=== PATIENT | female | born 1960 | race Caucasian/White ===

== ENCOUNTER → 2018-10-05 17:54 | Outpatient (CLI) | payer OTHER, SELFPAY ==
[2018-10-05 19:32] LABS: Amphetamine/Metha Screen,Urine Negative ng/mL (<1000); Barbiturates Screen,Urine Negative ng/mL (<200); Benzodiazepines Screen,Urine Negative ng/mL (<200); Cannabinoid Screen,Urine Positive ng/mL (<50); Cocaine Screen,Urine Negative ng/mL (<300); Methadone Screen,Urine Negative ng/mL (<300); Opiate Screen,Urine Negative ng/mL (<300); Phencyclidine Screen,Urine Negative ng/mL (<25)
== END ==
PROVIDERS: Visit Provider Emergency Medicine
DX: J44.9 Chronic obstructive pulmonary disease, unspecified (principal); Z79.899 Other long term (current) drug therapy
CPT/HCPCS: 80305

== ENCOUNTER → 2018-12-03 13:22 | Outpatient (CLI) | payer OTHER, SELFPAY ==
[2018-12-03 13:35] LABS: Basophils % 0.4 % (0.1-2.0); Eosinophils # 0.1 K/mm3 (0.0-0.4); Eosinophils % 1.9 % (0.1-12.0); Hematocrit 41.9 % (37.0-47.0); Lymphocytes # 1.7 K/mm3 (0.7-4.5); Lymphocytes % 25.4 % (10-50); Mean Corpuscular HGB Conc 33.4 g/dL (31.8-35.4); Mean Corpuscular Hemoglobin 30.6 pg (27.0-31.2); Mean Corpuscular Volume 91.6 fl (81-99); Mean Platelet Volume 7.3 fl (7.4-10.4); Monocytes # 0.3 K/mm3 (0.1-1.0); Monocytes % 3.8 % (1.7-9.3); Neutrophils # 4.7 K/mm3 (1.8-7.8); Neutrophils % 68.5 % (37.0-80.0); Platelet Count 247 K/mm3 (142-424); Red Blood Count 4.57 M/mm3 (4.20-5.40); Red Cell Distribution Width 15.1 % (11.5-17.5); White Blood Count 6.8 K/mm3 (4.8-10.8)
[2018-12-03 14:39] LABS: Alanine Aminotransferase 23 U/L (12-78); Albumin Level 3.5 gm/dL (3.4-5.0); Albumin/Globulin Ratio 1.2 (1.1-1.8); Alkaline Phosphatase 87 U/L (46-116); Anion Gap 13.7 mEq/L (5-15); Aspartate Amino Transferase 8 U/L (15-37); Bilirubin,Total 0.3 mg/dL (0.2-1.0); Blood Urea Nitrogen 12 mg/dL (7-18); Calcium 8.7 mg/dL (8.5-10.1); Carbon Dioxide 27 mmol/L (21.0-32.0); Chloride 104 mmol/L (98-107); Chol/HDL Ratio 4.4 (1-3.5); Cholesterol 157 mg/dL (140-200); Creatinine,Serum 1.66 mg/dL (0.55-1.02); Estimated Glomerular Filt Rate 32 ml/min (>60); GFR (African American) 39 ML/MIN (>60); Glucose 128 mg/dL (74-106); HDL Cholesterol 36 mg/dL (29-89); LDL Cholesterol 87 mg/dL (0-130); Potassium 3.7 mmoL/L (3.5-5.1); Sodium 141 mmol/L (136-145); T4 (Thyroxine) 6.1 ug/dl (4.7-13.3); Total Protein,Serum 6.5 gm/dL (6.4-8.2); Triglycerides 172 mg/dL (30-200); VLDL Cholesterol 34 mg/dL (0-40)
== END ==
PROVIDERS: Visit Provider Emergency Medicine
DX: N28.9 Disorder of kidney and ureter, unspecified (principal)
CPT/HCPCS: 80053; 80061; 84436; 84443; 85025

== ENCOUNTER → 2019-01-14 17:22 | Outpatient (CLI) | payer OTHER, SELFPAY ==
[2019-01-14 19:24] LABS: Anion Gap 12.9 mEq/L (5-15); Blood Urea Nitrogen 16 mg/dL (7-18); Calcium 9.1 mg/dL (8.5-10.1); Carbon Dioxide 31 mmol/L (21.0-32.0); Chloride 104 mmol/L (98-107); Creatinine,Serum 1.69 mg/dL (0.55-1.02); Estimated Glomerular Filt Rate 31 ml/min (>60); GFR (African American) 38 ML/MIN (>60); Glucose 96 mg/dL (74-106); Potassium 3.9 mmoL/L (3.5-5.1); Sodium 144 mmol/L (136-145)
[2019-01-14 20:06] LABS: Hemoglobin A1C 5.8 % (0.0-7.0)
== END ==
LOC: LAB 17:25 → LAB.DROPOF 17:26
PROVIDERS: Visit Provider Nurse Practitioner Family
DX: G62.9 Polyneuropathy, unspecified (principal); L03.90 Cellulitis, unspecified; R31.9 Hematuria, unspecified; N28.9 Disorder of kidney and ureter, unspecified; N39.0 Urinary tract infection, site not specified
CPT/HCPCS: 80048; 83036; 87070; 87077; 87086; 87186; 87205

== ENCOUNTER → 2019-02-28 09:04 | Outpatient (POV) | payer OTHER, SELFPAY | PROVIDERS: Visit Provider Specialist | DX: R20.0 Anesthesia of skin (principal); R20.2 Paresthesia of skin | CPT/HCPCS: 95886; 95909 ==

== ENCOUNTER → 2019-04-22 08:51 | Outpatient (CLI) | payer OTHER, SELFPAY ==
--- NOTE | 2019-04-22 08:53 | MR_ITS ---
PROCEDURE: MR LUMBAR SPINE WO CON CLINICAL INDICATION: back pain Low back pain with intermittent right leg pain numbness and tingling COMPARISON: No exams were available for comparison TECHNIQUE: Standard multiplanar multiecho sequences are performed without contrast. 3-D MIP and myelographic images are also rendered and reviewed FINDINGS: There is normal alignment. The spinal cord ends at the L2 level. At L1 there is a 1.9 x 1.3 cm area of increased T1 and T2 signal with increased T1 and T2 signal involving L4 vertebral body in the mid and posterior aspect on the left consistent with incidental lipomata sore hemangiomatous involvement. L1-L2, L2-L3, L3-L4 have an unremarkable appearance. L4-5: There is mild facet and ligamentum hypertrophy with mild left lateral recess narrowing. L5-S1: Mild facet and ligamentum hypertrophy. IMPRESSION: 1. Mild facet and ligamentum hypertrophy at L4-L5 and L5-S1. 2. No disc herniation or other significant anomaly evident. 3. Incidental lipomatosis or hemangiomatous involvement at L1 and L4 Dictated by: Mati Caro MD 04/22/2019 18:33 Electronically signed by Mati Caro MD in [place] 04/23/2019 05:41
== END ==
PROVIDERS: PCP Emergency Medicine; Visit Provider Emergency Medicine
DX: M54.9 Dorsalgia, unspecified (principal)
CPT/HCPCS: 72148; 76376

== ENCOUNTER → 2019-12-08 09:53 | Outpatient (CLI) | payer OTHER, SELFPAY ==
--- NOTE | 2019-12-08 09:53 | MM_ITS ---
PROCEDURE: MM DIG SCREENING MAMM BI W/CAD Digital Breast Tomosynthesis Included CLINICAL INDICATION: screening there is a history of breast cancer patient's mother. COMPARISON: DIG MAMMO BILAT SCREENING from 08/31/2012 MAMMO SCREENING DIGITAL BILAT from 03/18/2016 Screening-Bilateral Mammography from 07/07/2017 , outside films TECHNIQUE: Standard CC and MLO images and 3D Tomosynthesis was obtained. R2 CAD reviewed. FINDINGS: Scattered fibroglandular densities are seen in the central portions of both breasts. There is a benign-appearing calcification just deep to the nipple right breast. There are few scattered benign-appearing microcalcifications inner quadrant each breast. There are stable tiny benign-appearing nodular densities outer quadrant left breast. There is no suspicious lesion and no suspicious microcalcifications. There are normal appearing nodes in each axilla. IMPRESSION: Fibrofatty parenchyma with no suspicious lesions seen BI-RAD Category: 2 Benign Finding(s) FOLLOW-UP: 1YR 1 Year Follow-up (A letter has been sent to the patient regarding results of the study.) Dictated by: Dr. Howard Myers MD 12/14/2019 11:[address] Howard Myers MD in [place] 12/14/2019 11:47
== END ==
PROVIDERS: PCP Emergency Medicine; Visit Provider Emergency Medicine
DX: Z12.31 Encounter for screening mammogram for malignant neoplasm of breast (principal)
CPT/HCPCS: 77063; 77067

== ENCOUNTER → 2019-12-13 17:57 | Outpatient (CLI) | payer OTHER, SELFPAY ==
[2019-12-13 18:32] LABS: Basophils # 0.1 K/mm3 (0-0.2); Basophils % 0.8 % (0.1-2.0); Eosinophils # 0.1 K/mm3 (0.0-0.4); Hematocrit 42.6 % (37.0-47.0); Hemoglobin 14.2 g/dL (12.2-16.2); Lymphocytes # 2.4 K/mm3 (0.7-4.5); Lymphocytes % 31.1 % (10-50); Mean Corpuscular HGB Conc 33.3 g/dL (31.8-35.4); Mean Corpuscular Hemoglobin 31.8 pg (27.0-31.2); Mean Corpuscular Volume 95.4 fl (81-99); Mean Platelet Volume 8.3 fl (7.4-10.4); Monocytes # 0.4 K/mm3 (0.1-1.0); Monocytes % 5.2 % (1.7-9.3); Neutrophils # 4.8 K/mm3 (1.8-7.8); Neutrophils % 61.9 % (37.0-80.0); Platelet Count 374 K/mm3 (142-424); Red Blood Count 4.46 M/mm3 (4.20-5.40); Red Cell Distribution Width 13.7 % (11.5-17.5); White Blood Count 7.8 K/mm3 (4.8-10.8)
[2019-12-13 18:42] LABS: Chloride 104 mmol/L (98-107); Sodium 140 mmol/L (136-145)
[2019-12-13 18:43] LABS: Potassium 3.9 mmoL/L (3.5-5.1)
[2019-12-13 18:45] LABS: Alanine Aminotransferase 27 U/L (12-78); Alkaline Phosphatase 94 U/L (38-126); Aspartate Amino Transferase 34 U/L (14-36); Bilirubin,Total 0.6 mg/dl (0.2-1.3); Blood Urea Nitrogen 14 mg/dl (7-17); Estimated Glomerular Filt Rate 86 ml/min (>60); GFR (African American) 104 ML/MIN (>60)
[2019-12-13 18:46] LABS: Albumin Level 4.6 g/dl (3.5-5.0); Albumin/Globulin Ratio 1.6 (1.1-1.8); Anion Gap 12.9 mEq/L (5-15); Calcium 9.5 mg/dl (8.4-10.2); Carbon Dioxide 27 mmol/L (22.0-30.0); Globulin 2.8 g/dL (1.3-3.2); Glucose 106 mg/dl (74-100); Total Protein,Serum 7.4 g/dl (6.3-8.2)
[2019-12-13 19:01] LABS: Free T4 (Free Thyroxine) 1.28 ng/dl (0.78-2.19)
[2019-12-13 19:43] LABS: Thyroid Stimulating Hormone 1.12 uIU/mL (0.465-4.68)
== END ==
PROVIDERS: Visit Provider Emergency Medicine
DX: R60.9 Edema, unspecified (principal); I10 Essential (primary) hypertension
CPT/HCPCS: 80053; 84439; 84443; 85025

== ENCOUNTER → 2020-03-22 13:25 | Outpatient (CLI) | payer OTHER, SELFPAY ==
--- NOTE | 2020-03-22 13:31 | XR_ITS ---
PROCEDURE: XR FOOT WT BEARING LT 3V CLINICAL INDICATION: pain COMPARISON: No exams were available for comparison FINDINGS: Bones: No fracture or dislocation. No lytic or blastic change. There is normal mineralization. Joints: The joint spaces are well-preserved. No significant degenerative/arthritic changes. No erosive changes evident. Other findings:None. IMPRESSION: No acute findings. Dictated by: Mati Caro MD 03/22/2020 14:26 Mati Caro MD in [place] 03/22/2020 14:26
--- NOTE | 2020-03-22 13:31 | XR_ITS ---
PROCEDURE: XR FOOT WT BEARING RT 3V CLINICAL INDICATION: pain COMPARISON: No exams were available for comparison FINDINGS: Bones: No fracture or dislocation. No lytic or blastic change. There is normal mineralization. Joints: There are mild osteoarthritic changes at the 1st metacarpal-carpal joint and at the navicular cuneiform joint. Mild bony hypertrophy is present at the distal aspect of the 1st metatarsal. Other findings:None. IMPRESSION: Mild degenerative changes Dictated by: Mati Caro MD 03/22/2020 14:28 Mati Caro MD in [place] 03/22/2020 14:28
== END ==
PROVIDERS: PCP Emergency Medicine; Visit Provider Podiatrist
DX: M79.673 Pain in unspecified foot (principal)
CPT/HCPCS: 73630

== ENCOUNTER → 2020-07-02 13:33 | Outpatient (CLI) | payer OTHER, SELFPAY ==
--- NOTE | 2020-07-02 13:33 | CA_ITS ---
APPROVED REPORT EXAM: Comprehensive 2D, Doppler, and color-flow Echocardiogram Community Relations Assistant: Tessie Gamino RT(R) Ht: 5 ft 3 in Wt: 274lbs BSA: 2.21 BP: 128/82 mmHg Indications: murmur, COPD, smoker, SOB, HTN, GERD, obesity 2D Dimensions LVOT 2.01 cm (M/F) 1.5-2.5 M-Mode Dimensions RVDd 2.99 cm (0.9-2.6) LA Diam 3.66 cm (1.9-4.0) LVDd 3.82 cm (3.5-5.7) Ao Diam 2.68 cm (2.0-3.7) LVDs 2.63 cm (3.5-5.7) IVSd 1.24 cm (0.6-1.1) PWd 0.93 cm (0.6-1.1) EF (Teich) 59.60% FS 31.20% EDV (Teich) 62.70 mL ESV (Teich) 25.30 mL LV Diastology E Decel Time 233.00 (160-240 msec) E/A Ratio 1.0 MED E' 7.40 (< 7 cm/sec) E'/MED E' Ratio 13.82 (>14) LAT E' 7.70 (<10 cm/sec) E/LAT E' Ratio 13.29 (>14) Mitral Valve MV E Max Yogi. 102.00 (40-130 cm/s) MV A Velocity 99.00 (40-130 cm/s) E/A Ratio 1.03 MV Decel. Time 233.00 (160-240 ms) MV PHT 68.00 ms Left Ventricle Technically difficult study because of the patient factors and poor acoustic windows, left atrium is mildly enlarged, left ventricle is normal size, mild concentric left ventricular hypertrophy, visually estimated ejection fraction 55% with no regional wall motion abnormality, grade 1 diastolic dysfunction seen with tissue Doppler evidence of raise left atrial pressure. Right Ventricle Right atrium and right ventricle are mildly enlarged with normal contractility. Aortic Valve Aortic valve is minimally thickened and fibrosed. There is no aortic stenosis or aortic insufficiency. Mitral Valve Mitral valve leaflets are minimally thickened, there is no mitral stenosis, there is mild mitral regurgitation. Tricuspid Valve Tricuspid valve is grossly normal, there is mild tricuspid regurgitation, tricuspid regurgitation jet velocity is inadequate for calculation of the right ventricular systolic pressure. Pulmonic Valve Pulmonic valve is poorly visualized. Great Vessels Aortic root is normal size. Pericardium No significant pericardial effusion noted. Conclusion 1. Mild biatrial enlargement, normal left ventricular size, mild concentric left ventricular hypertrophy, visually estimated ejection fraction 55% with no regional wall motion abnormality, grade 1 diastolic dysfunction seen with tissue Doppler evidence of raise left atrial pressure. 2. Mildly enlarged right ventricle with normal contractility. 3. Mild mitral and tricuspid regurgitation. 4. No significant pericardial effusion noted. Electronically signed by : Shadi Jain, 07/03/2020 06:14:22
== END ==
PROVIDERS: PCP Emergency Medicine; Visit Provider Emergency Medicine
DX: R01.1 Cardiac murmur, unspecified (principal)
CPT/HCPCS: 93306

== ENCOUNTER 2020-09-05 14:20 | Inpatient (IN) | payer OTHER, SELFPAY ==
[2020-09-05] VITALS (15 sets, daily range): BP systolic 121–145; BP diastolic 59–76; PULSE 79–97; RESP 18–24; TEMP 36.4–37.1; O2SAT 73–100; BMI 50.1
--- NOTE | 2020-09-05 14:31 | ECG_ITS ---
APPROVED REPORT Exam: Resting ECG HR:85 bpm ECG Measurements Heart Rate 85 AXES MI 128 P 72 QRSd 86 QRS 111 QT 360 T 75 QTc 428 Conclusion Sinus rhythm with premature atrial complexes Indeterminate axis Cannot rule out Anterior infarct, age undetermined Abnormal ECG Electronically signed by : Armand Montgomery, 09/06/2020 08:53:00
--- NOTE | 2020-09-05 14:35 | XR_ITS ---
PROCEDURE: XR CHEST PORTABLE CLINICAL HISTORY: SOB Shortness of breath COMPARISON: No exams were available for comparison FINDINGS: Cardiomegaly with mild pulmonary venous congestion. There is overall increased density of the right hemithorax compared to the left which is felt to be mostly technical in nature. Cannot exclude pneumonia on the right. Upright PA and lateral chest or CT scan may provide further evaluation. No acute bony abnormalities. IMPRESSION: Mild CHF. Overall increased density of the right chest compared to the left felt to be mostly technical in nature. Cannot exclude underlying pneumonia in the right lower lobe Dictated by: Mati Caro MD 09/05/2020 15:46 Mati Caro MD in [place] 09/05/2020 15:46
--- NOTE | 2020-09-05 14:36 | HMH.EDGENADL ---
ED Disposition Clinical Impression: Acute exacerbation of chronic obstructive airways disease Community acquired pneumonia Qualifiers: Laterality: unspecified laterality Qualified Code(s): J18.9 - Pneumonia, unspecified organism Congestive heart failure Qualifiers: Heart failure type: unspecified Heart failure chronicity: acute on chronic Qualified Code(s): I50.9 - Heart failure, unspecified Disposition: Admitted As Inpatient Condition on Discharge: Good Referrals: Sheng Krueger MD [Primary Care Provider] - Time of Disposition: 17:24 - Critical Care Critical Care Time: No Attestation: On 09/05/20, the high probability of a clinically significant, sudden or life threatening deterioration of the following system(s) required my full and direct attention, intervention and personal management. The time I documented below is in addition to time spent performing reported procedures but includes the following listed in this critical care notation. Medical Decision Making - Medical Records Medical records reviewed: Yes: I reviewed the patient's medical records. - Jason Inquiry Pt receiving controlled substance: No Vital Signs: 09/05/20 14:21 09/05/20 14:25 09/05/20 15:20 Temperature 98.3 F Temperature Source Oral Pulse Rate Pulse Rate [Left Brachial] 89 79 Respiratory Rate 24 20 20 Blood Pressure [Right Arm] 145/76 H 127/71 Blood Pressure Mean [Right Arm] 99 89 Blood Pressure Source [Right Arm] Automatic Cuff Blood Pressure Position [Right Arm] Sitting 02 Sat by Pulse Oximetry 73 L 92 L 95 Oxygen Delivery Method Room Air Nasal Cannula Nasal Cannula Oxygen Flow Rate (LPM) 6 2 09/05/20 15:30 09/05/20 16:00 09/05/20 16:23 Temperature Temperature Source Pulse Rate 86 Pulse Rate [Left Brachial] 82 80 Respiratory Rate 18 20 Blood Pressure [Right Arm] 127/71 122/59 L Blood Pressure Mean [Right Arm] 89 80 Blood Pressure Source [Right Arm] Blood Pressure Position [Right Arm] 02 Sat by Pulse Oximetry 95 93 L Oxygen Delivery Method Nasal Cannula Room Air Nasal Cannula Oxygen Flow Rate (LPM) 4 4 09/05/20 16:30 09/05/20 17:11 Temperature Temperature Source Pulse Rate Pulse Rate [Left Brachial] 82 80 Respiratory Rate 20 24 Blood Pressure [Right Arm] 121/63 125/62 Blood Pressure Mean [Right Arm] 82 83 Blood Pressure Source [Right Arm] Blood Pressure Position [Right Arm] 02 Sat by Pulse Oximetry 99 88 L Oxygen Delivery Method Nasal Cannula Nasal Cannula Oxygen Flow Rate (LPM) 4 3 - Lab Data Lab results reviewed: Yes: I reviewed the patient's lab results. Lab Results 09/05/20 14:30: WBC 9.2, RBC 4.38, Hgb 13.1, Hct 43.8, MCV 99.9 H, MCH 29.9, MCHC 29.9 L, RDW 16.2, Plt Count 271, MPV 7.4, Neut % (Auto) 76.3, Lymph % (Auto) 16.6, [place] % (Auto) 4.8, Eos % (Auto) 1.7, Baso % (Auto) 0.6, Neut # (Auto) 7.0, Lymph # (Auto) 1.5, [place] # (Auto) 0.4, Eos # (Auto) 0.2, Baso # (Auto) 0.1 09/05/20 14:30: Sodium 142, Potassium 4.1, Chloride 97 L, Carbon Dioxide 42 H*, Anion Gap 7.1, BUN 31 H, Creatinine 1.40 H, Estimated Creat Clear 36, Estimated GFR 38 L, Est GFR ( Amer) 47 L, Glucose 97, Calcium 9.1, Total Bilirubin 0.4, AST 26, ALT 30, Alkaline Phosphatase 81, Troponin I 0.02, Total Protein 6.6, Albumin 3.8, Globulin 2.8, Albumin/Globulin Ratio 1.4 09/05/20 14:30: NT-Pro-B Natriuret Pep 5150 H 09/05/20 16:30: Urine Color Yellow, Urine Appearance Clear, Urine pH 6.0, Ur Specific [place] 1.020, Urine Protein Negative, Urine Glucose (UA) Negative, Urine Ketones Negative, Urine Blood Negative, Urine Nitrate Negative, Urine Bilirubin Negative, Urine Urobilinogen 0.2, Ur Leukocyte Esterase Negative Result diagrams: 09/05/20 14:30 09/05/20 14:30 Orders (Tests/Meds): ED MEDICATIONS Generic Name Dose Route Start Last Admin Trade Name Freq PRN Reason Stop Dose Admin Azithromycin 500 mg/ Sodium 250 mls @ 250 mls/hr 09/05/20 17:30 Chloride IV 09/19/20 17
[2020-09-05 14:57] LABS: Basophils # 0.1 K/mm3 (0-0.2); Basophils % 0.6 % (0.1-2.0); Eosinophils # 0.2 K/mm3 (0.0-0.4); Eosinophils % 1.7 % (0.1-12.0); Hematocrit 43.8 % (37.0-47.0); Hemoglobin 13.1 g/dL (12.2-16.2); Lymphocytes # 1.5 K/mm3 (0.7-4.5); Lymphocytes % 16.6 % (10-50); Mean Corpuscular HGB Conc 29.9 g/dL (31.8-35.4); Mean Corpuscular Hemoglobin 29.9 pg (27.0-31.2); Mean Corpuscular Volume 99.9 fl (81-99); Mean Platelet Volume 7.4 fl (7.4-10.4); Monocytes # 0.4 K/mm3 (0.1-1.0); Monocytes % 4.8 % (1.7-9.3); Neutrophils % 76.3 % (37.0-80.0); Platelet Count 271 K/mm3 (142-424); Red Blood Count 4.38 M/mm3 (4.20-5.40); Red Cell Distribution Width 16.2 % (11.5-17.5); White Blood Count 9.2 K/mm3 (4.8-10.8)
[2020-09-05 15:04] LABS: Chloride 97 mmol/L (98-107); Potassium 4.1 mmoL/L (3.5-5.1); Sodium 142 mmol/L (136-145)
[2020-09-05 15:06] LABS: Blood Urea Nitrogen 31 mg/dl (7-17); Creatinine Clearance Estimated 36 mL/min (50-200); Estimated Glomerular Filt Rate 38 ml/min (>60); GFR (African American) 47 ML/MIN (>60)
[2020-09-05 15:07] LABS: Alanine Aminotransferase 30 U/L (12-78); Albumin Level 3.8 g/dl (3.5-5.0); Albumin/Globulin Ratio 1.4 (1.1-1.8); Alkaline Phosphatase 81 U/L (38-126); Aspartate Amino Transferase 26 U/L (14-36); Bilirubin,Total 0.4 mg/dl (0.2-1.3); Calcium 9.1 mg/dl (8.4-10.2); Globulin 2.8 g/dL (1.3-3.2); Glucose 97 mg/dl (74-100); Total Protein,Serum 6.6 g/dl (6.3-8.2)
[2020-09-05 15:17] LABS: Anion Gap 7.1 mEq/L (5-15)
[2020-09-05 15:18] LABS: Carbon Dioxide 42 mmol/L (22.0-30.0)
[2020-09-05 15:19] LABS: Troponin I 0.02 ng/ml (0.00-0.034)
[2020-09-05 16:06] LABS: NT Pro Brain Natriuretic Pep. 5150 pg/mL (0-125)
[2020-09-05 16:37] LABS: Microscopic, Urine URINE MICROSCOPIC (MICROSCOPIC)
[2020-09-05 17:14] LABS: Appearance,Urine CLEAR (Clear); Bilirubin,Urine Negative (Negative); Blood, Urine Negative (Negative); Color,Urine YELLOW (Yellow); Glucose,Urine (UA) Negative (Negative); Ketones,Urine Negative (Negative); Leukocyte Esterase,Urine Negative (Negative); Nitrate,Urine Negative (Negative); Protein,Urine Negative (Negative); Urobilinogen,Urine 0.2 EU/dl (0.2)
[2020-09-05 17:54] LABS: Troponin I 0.02 ng/ml (0.00-0.034)
[2020-09-05 18:03] LABS: WBC,Urine Occasional #/hpf (0-3)
[2020-09-05 18:04] LABS: Bacteria,Urine Trace /lpf; Squamous Epithelial Cell,Urine Occasional #/hpf (0-5)
--- NOTE | 2020-09-05 19:14 | PC.NURSE ---
patient up to floor via stretcher.
--- NOTE | 2020-09-05 20:36 | HMH.HP ---
*Admission Date: 09/05/20 *Chief complaint: sob *History of present illness: this pr was seen in pcp office and asked to go to ed -pt with sob and lower ext swelling - no chest pain and was noted to be increased sob- she was seen in the ed -tient c/o increasing shortness of air and generalized body swelling worsening x 1 week, sent to ED from PCP office for low spo2. 60yo F presents to the emergency department from Dr. Krueger's office with concern for shortness of breath and worsening lower extremity edema. Patient reports the symptoms been progressively worsening over the past several days to weeks. She denies fever. She denies nausea/vomiting/diarrhea. Patient reports taking all home medications as directed. Patient continues to smoke, but states she is trying to decrease her tobacco use. She denies chest pain. pt with chf and was admitted for eval and treatment [facility] History I have reviewed the patient's past medical history: Yes Medical History: Reports:: Anxiety, Chronic Obstructive Pulmonary Disease (COPD), Depression, Gastroesophageal Reflux Disease(GERD), Hypertension, Lung Disease, Renal Insufficiency *Have you ever received a pneumonia vaccine?: No *Have you received a flu vaccine this season?: Yes Other Medical History: Reports: Fibromyalgia, Other Other Surgeries: Yes: Appendectomy, Cholecystectomy, Hernia Repair, Other Amputation: No Fractures: Yes - *Social History Smoking Status: Current every day smoker Tobacco Type: cigarettes # Packs/Day (cigarettes): 1 #Yrs smoked (if former smoker): 30 Alcohol Intake: never Substance Use Type: marijuana *Occupational Status:: disabled Housing: apartment Household Members: none *Travel in the last 8 weeks: None - Psychiatric History Pschychiatric History:: Reports:: Anxiety, Depression Family Hx:: Kidney Disease, Cancer, Hypertension, Thyroid Disorder, Diabetes Review of Systems - Review of Systems Review of systems:: pertinent systems reviewed and negative unless documented below - Constitutional Denies fever(s), Denies headache(s) - Eyes Denies change in vision - ENT Reports dizziness, Denies sore throat - *Cardiovascular Reports shortness of breath, Denies chest pain at rest - *Respiratory Reports shortness of breath - *Gastrointestinal Denies abdominal pain - *Genitourinary Denies blood in urine - *Musculoskeletal Denies joint pain - Integumentary/Breasts Denies rash - *Neurologic Denies seizure-like activity, Denies localized weakness, Denies headache(s) - Psychiatric Reports anxiety Meds Home Medications Medication Instructions Recorded Confirmed Type buspirone 15 mg tablet 15 mg PO TID tab 10/05/18 09/05/20 History risperidone 1 mg tablet 1 mg PO QHS 01/14/19 09/05/20 History cyclobenzaprine 10 mg tablet 10 mg PO HS PRN #20 tab 10/21/19 09/05/20 Rx albuterol sulfate 90 mcg/actuation 1 puff INHALATION Q6H PRN #18 g 12/07/19 09/05/20 Rx aerosol inhaler hydroxyzine HCl 50 mg tablet 50 mg PO NEEDED PRN tab 02/21/20 09/05/20 History ciclopirox 8 % topical solution 1 applic TOPICAL DAILY 60 Days 03/22/20 09/05/20 Rx #6.6 ml diclofenac sodium 1 % topical gel 4 g TOPICAL QID PRN #30 g 03/22/20 09/05/20 Rx escitalopram oxalate 20 mg tablet 20 mg PO DAILY tab 03/22/20 09/05/20 History fluticasone propionate 50 1 spray INTRANASAL DAILY PRN 03/22/20 09/05/20 History mcg/actuation nasal spray,suspension ipratropium 0.5 mg-albuterol 3 mg 3 ml INHALATION Q8H PRN #180 ml 06/01/20 09/05/20 Rx (2.5 mg base)/3 mL nebulization soln gabapentin 800 mg tablet 800 mg PO TID #90 tab 06/22/20 09/05/20 Rx hydrocodone 5 mg-acetaminophen 325 1 tab PO DAILY PRN #8 tab 08/28/20 09/05/20 Rx mg tablet Fluticasone/Vilanterol [Breo See Rx Instructions .ROUTE .COMPLEX 09/05/20 09/05/20 History Ellipta 200-25 Mcg INH] Furosemide [Furosemide 20mg Tab*] See Rx Instructions .ROUTE .COMPLEX 09/05/20 09/05/20 History Nystatin [Nystatin Cr
[2020-09-05 20:38] LABS: Troponin I 0.02 ng/ml (0.00-0.034)
[2020-09-06] VITALS (14 sets, daily range): BP systolic 114–142; BP diastolic 64–72; PULSE 87–106; RESP 19–20; TEMP 36.6–37.5; O2SAT 89–93; BMI 49.8
[2020-09-06 07:35] LABS: Chloride 96 mmol/L (98-107); Potassium 4.5 mmoL/L (3.5-5.1); Sodium 143 mmol/L (136-145)
[2020-09-06 07:37] LABS: Basophils % 0.1 % (0.1-2.0); Eosinophils % 0.3 % (0.1-12.0); Hematocrit 42.5 % (37.0-47.0); Hemoglobin 12.6 g/dL (12.2-16.2); Lymphocytes # 0.7 K/mm3 (0.7-4.5); Lymphocytes % 9.8 % (10-50); Mean Corpuscular HGB Conc 29.6 g/dL (31.8-35.4); Mean Corpuscular Hemoglobin 30.5 pg (27.0-31.2); Mean Corpuscular Volume 103.3 fl (81-99); Mean Platelet Volume 7.9 fl (7.4-10.4); Monocytes # 0.2 K/mm3 (0.1-1.0); Monocytes % 3.3 % (1.7-9.3); Neutrophils # 6.2 K/mm3 (1.8-7.8); Neutrophils % 86.6 % (37.0-80.0); Platelet Count 241 K/mm3 (142-424); Red Blood Count 4.12 M/mm3 (4.20-5.40); Red Cell Distribution Width 15.7 % (11.5-17.5); White Blood Count 7.2 K/mm3 (4.8-10.8)
[2020-09-06 07:38] LABS: Blood Urea Nitrogen 29 mg/dl (7-17); Calcium 8.8 mg/dl (8.4-10.2); Creatinine Clearance Estimated 30 mL/min (50-200); Estimated Glomerular Filt Rate 33 ml/min (>60); GFR (African American) 40 ML/MIN (>60); Glucose 137 mg/dl (74-100)
[2020-09-06 07:42] LABS: MANUAL DIFFERENTIAL MANUAL DIFFERENTIAL (MANUAL DIFF)
[2020-09-06 07:51] LABS: Anion Gap 8.5 mEq/L (5-15)
--- NOTE | 2020-09-06 08:00 | CA_ITS ---
APPROVED REPORT EXAM: Comprehensive 2D, Doppler, and color-flow Echocardiogram [employer] Polisher Helper: Larissa Craven RDCS Ht: 5 ft 3 in Wt: 283lbs BSA: 2.24 BP: 141/69 mmHg Indications: CHF,COPD,SOA,LUI,OBESITY M-Mode Dimensions RVDd 4.52 cm (0.9-2.6) LA Diam 3.41 cm (1.9-4.0) LVDd 4.63 cm (3.5-5.7) Ao Diam 2.65 cm (2.0-3.7) LVDs 3.47 cm (3.5-5.7) IVSd 0.91 cm (0.6-1.1) PWd 1.11 cm (0.6-1.1) EF (Teich) 49.60% FS 25.10% EDV (Teich) 98.80 mL TAPSE 0.03 (<1.7) ESV (Teich) 49.80 mL LV Diastology E Decel Time 253.00 (160-240 msec) E/A Ratio 0.9 MED E' 7.80 (< 7 cm/sec) E'/MED E' Ratio 12.28 (>14) Mitral Valve MV E Max Yogi. 96.00 (40-130 cm/s) MV A Velocity 109.00 (40-130 cm/s) E/A Ratio 0.88 MV Decel. Time 253.00 (160-240 ms) MV PHT 74.00 ms Tricuspid Valve TR P. Velocity 297.00 cm/s RAP Estimate 10.00 mmHg RVSP 45.20 mmHg Left Ventricle Left atrium is mildly enlarged, left ventricle is normal size, mild concentric left ventricular hypertrophy, visually estimated ejection fraction 55% with no regional wall motion abnormality, grade 1 diastolic dysfunction seen without tissue Doppler evidence of raise left atrial pressure. Right Ventricle Right atrium and right ventricle moderately enlarged with normal contractility. Aortic Valve Aortic valve is minimally thickened and fibrosed, there is no aortic stenosis or aortic insufficiency. Mitral Valve Mitral valve is grossly normal, there is trace mitral regurgitation. Tricuspid Valve Tricuspid valve grossly normal, there is trace tricuspid regurgitation, tricuspid regurgitation jet velocity is inadequate for calculation of the right ventricular systolic pressure. Pulmonic Valve Pulmonic valve is poorly visualized. Great Vessels Aortic root is normal size. Pericardium No significant pericardial effusion noted. Conclusion 1. Biatrial enlargement, normal left ventricular size, visually estimated ejection fraction 55% with no regional wall motion abnormality, grade 1 diastolic dysfunction seen without tissue Doppler evidence of raise left atrial pressure. 2. Moderately enlarged right ventricle with normal contractility. 3. Trace mitral and tricuspid regurgitation. 4. No significant pericardial effusion noted. Electronically signed by : Shadi Jain, 09/06/2020 14:11:38
--- NOTE | 2020-09-06 08:09 | HMH.PHAVTE ---
[facility] Pharmacy VTE Monitoring - Patient Demographics Admission date: 09/06/20 Report Date: 09/06/20 Time: 08:09 Allergies/Adverse Reactions: Patient Allergies amoxicillin [From Augmentin] Allergy (Severe, Verified 09/05/20 13:31) Rash ciprofloxacin Allergy (Severe, Verified 09/05/20 13:31) Rash clavulanic acid [From Augmentin] Allergy (Severe, Verified 09/05/20 13:31) Rash shellfish derived Allergy (Severe, Verified 09/05/20 20:25) Anaphylaxis Height: 1.6 m Weight: 127.488 kg Patient Problems: Current Active Problems Community acquired pneumonia (Acute) Congestive heart failure (Acute) Acute exacerbation of chronic obstructive airways disease (Acute) JI (acute kidney injury) (Acute) Acute respiratory failure with hypoxia (Acute) SIRS (systemic inflammatory response syndrome) (Acute) Peripheral neuropathy (Chronic) Lumbar facet joint pain (Acute) Obesity (Acute) Tobacco use (Acute) H/O kidney removal (Acute) Fibromyalgia (Acute) - VTE Risk Labs: VTE Related Lab Results Hgb 12.6 g/dL (12.2-16.2) 09/06/20 07:15 Hct 42.5 % (37.0-47.0) 09/06/20 07:15 Plt Count 241 K/mm3 (142-424) 09/06/20 07:15 BUN 29 mg/dl (7-17) H 09/06/20 07:15 Creatinine 1.60 mg/dl (0.52-1.04) H 09/06/20 07:15 Estimated Creat Clear 30 mL/min (50-200) 09/06/20 07:15 Was VTE Risk Assessment Performed: Yes VTE Score: 11 VTE Risk Level: Moderate Risk Clinical Trial Participant: No - Prophylaxis VTE Prophylaxis Ordered?: Yes Types of VTE Prophylaxis: TEDS Knee High
--- NOTE | 2020-09-06 09:06 | HMH.ACPN2 ---
Internal Medicine - PN: Subj *Date: 09/06/20 *Time: 09:06 Interval history: pt sitting up in bed states she feels bad. Exam Vital signs and Labs for Last 24 Hours: Temp Pulse Resp BP Pulse Ox 97.8 F 95 H 20 114/64 90 L 09/06/20 07:57 09/06/20 07:57 09/06/20 07:57 09/06/20 07:57 09/06/20 07:57 Laboratory Results - last 24 hr 09/05/20 14:30: WBC 9.2, RBC 4.38, Hgb 13.1, Hct 43.8, MCV 99.9 H, MCH 29.9, MCHC 29.9 L, RDW 16.2, Plt Count 271, MPV 7.4, Neut % (Auto) 76.3, Lymph % (Auto) 16.6, [place] % (Auto) 4.8, Eos % (Auto) 1.7, Baso % (Auto) 0.6, Neut # (Auto) 7.0, Lymph # (Auto) 1.5, [place] # (Auto) 0.4, Eos # (Auto) 0.2, Baso # (Auto) 0.1 09/05/20 14:30: Sodium 142, Potassium 4.1, Chloride 97 L, Carbon Dioxide 42 H*, Anion Gap 7.1, BUN 31 H, Creatinine 1.40 H, Estimated Creat Clear 36, Estimated GFR 38 L, Est GFR ( Amer) 47 L, Glucose 97, Calcium 9.1, Total Bilirubin 0.4, AST 26, ALT 30, Alkaline Phosphatase 81, Troponin I 0.02, Total Protein 6.6, Albumin 3.8, Globulin 2.8, Albumin/Globulin Ratio 1.4 09/05/20 14:30: NT-Pro-B Natriuret Pep 5150 H 09/05/20 16:30: Urine Color Yellow, Urine Appearance Clear, Urine pH 6.0, Ur Specific [place] 1.020, Urine Protein Negative, Urine Glucose (UA) Negative, Urine Ketones Negative, Urine Blood Negative, Urine Nitrate Negative, Urine Bilirubin Negative, Urine Urobilinogen 0.2, Ur Leukocyte Esterase Negative, Urine RBC None, Urine WBC Occasional, Ur Squamous Epith Cells Occasional, Urine Bacteria Trace 09/05/20 17:10: Troponin I 0.02 09/05/20 19:48: Troponin I 0.02 09/06/20 07:15: WBC 7.2, RBC 4.12 L, Hgb 12.6, Hct 42.5, MCV 103.3 H, MCH 30.5, MCHC 29.6 L, RDW 15.7, Plt Count 241, MPV 7.9, Neut % (Auto) 86.6 H, Lymph % (Auto) 9.8 L, [place] % (Auto) 3.3, Eos % (Auto) 0.3, Baso % (Auto) 0.1, Neut # (Auto) 6.2, Lymph # (Auto) 0.7, [place] # (Auto) 0.2, Eos # (Auto) 0.0, Baso # (Auto) 0.0 09/06/20 07:15: Sodium 143, Potassium 4.5, Chloride 96 L, Carbon Dioxide 43 H*, Anion Gap 8.5, BUN 29 H, Creatinine 1.60 H, Estimated Creat Clear 30, Estimated GFR 33 L, Est GFR ( Amer) 40 L, Glucose 137 H D, Calcium 8.8 I & O for Last 24 hours: Intake & Output 09/03/20 09/04/20 09/05/20 09/06/20 11:59 11:59 11:59 11:59 Intake Total 650 / 650 Output Total 500 / 500 Balance 150 / 150 Weight 281 lb 1 oz Microbiology Reports for the Last 24 Hours: Microbiology 09/05/20 14:30 Nasopharyngeal Coronavirus COVID-19 PCR - Final - Constitutional no acute distress, morbidly obese - *Routine HEENT Exam Head: Present: normocephalic Eye: Present: PERRL ENT: Present: mucous membranes moist - *Routine Neck Exam Present: supple. Absent: lymphadenopathy - *Routine Respiratory Exam Present: wheezes - *Routine Cardiovascular Exam Present: RRR - *Routine Abdominal Exam Present: soft, normoactive bowel sounds. Absent: tenderness - *Routine Extremities Exam Present: edema, normal capillary refill. Absent: cyanosis, clubbing - *Routine Skin Exam Present: warm. Absent: rash - *Routine Neurological Exam Present: alert, oriented X3 - Routine Psychiatric Exam Present: normal affect Assessment and Plan (1) Congestive heart failure Status: Acute Qualifiers: Heart failure type: unspecified Heart failure chronicity: acute on chronic Qualified Code(s): I50.9 - Heart failure, unspecified Category: Medical Code(s): I50.9 - Heart failure, unspecified (2) Acute exacerbation of chronic obstructive airways disease Status: Acute Category: Medical Code(s): J44.1 - Chronic obstructive pulmonary disease with (acute) exacerbation (3) Peripheral neuropathy Status: Chronic Qualifiers: Peripheral neuropathy type: idiopathic neuropathy, unspecified Qualified Code(s): G60.9 - Hereditary and idiopathic neuropathy, unspecified Category: Medical Code(s): G62.9 - Polyneuropathy, unspecified (4) Lumbar facet joint pain Status: Acute Categ
--- NOTE | 2020-09-06 09:23 | HMH.CNCARD ---
History of Present Illness Consult date: 09/06/20 Requesting physician: Sheng Krueger Consult reason: congestive heart failure, shortness of breath Chief complaint: SOA and edema History of present illness: This is a 60-year-old white female who presented to the emergency department with complaints of shortness of breath and bilateral lower extremity edema. The patient states that she has been having worsening shortness of breath and lower extremity edema for approximately a month but it has gotten really bad within the last week. She states that she is short of breath all of the time even at rest. This is worse with exertion and does improve with rest but does not completely resolve. She states that her bilateral lower extremities are so edematous that she can barely walk. She states that she is also noticed the edema in her abdomen as well. She denies any chest pain or pressure. She denies any fever, chills, nausea, vomiting or diarrhea. She does have associated orthopnea with her shortness of breath. The patient has ruled out for an [place]. [facility] History I have reviewed the patient's past medical history: Yes Medical History: Reports:: Anxiety, Congestive Heart Failure, Chronic Obstructive Pulmonary Disease (COPD), Depression, Gastroesophageal Reflux Disease(GERD), Hypertension, Lung Disease, Renal Insufficiency Denies:: Cancer, Diabetes Mellitus Type 1, Diabetes Mellitus Type 2, MRSA *Have you ever received a pneumonia vaccine?: No *Have you received a flu vaccine this season?: Yes Other Medical History: Reports: Arthritis, Fibromyalgia, Sinus Problems, Other Laterality Cases: Left: Total Knee Replacement Other Surgeries: Yes: Appendectomy, Cholecystectomy, Hernia Repair, Other Amputation: No Fractures: Yes - *Social History Last grade of school completed: 9th or 10th Smoking Status: Current every day smoker Tobacco Type: cigarettes # Packs/Day (cigarettes): 1 #Yrs smoked (if former smoker): 30 Alcohol Intake: never Substance Use Type: marijuana *Occupational Status:: unemployed Housing: apartment Household Members: none *Travel in the last 8 weeks: None - Psychiatric History Pschychiatric History:: Reports:: Anxiety, Depression Family Hx:: Asthma, Cancer, Coronary Artery Disease, Diabetes, Heart Attack, Hyperlipidemia, Hypertension Meds Home Medications Medication Instructions Recorded Confirmed Type buspirone 15 mg tablet 15 mg PO TID tab 10/05/18 09/05/20 History risperidone 1 mg tablet 1 mg PO HS 01/14/19 09/06/20 History hydroxyzine HCl 50 mg tablet 50 mg PO TIDP PRN tab 02/21/20 09/06/20 History ciclopirox 8 % topical solution 1 applic TOPICAL DAILY 60 Days 03/22/20 09/05/20 Rx #6.6 ml fluticasone propionate 50 1 spray INTRANASAL DAILY PRN 03/22/20 09/05/20 History mcg/actuation nasal spray,suspension ipratropium 0.5 mg-albuterol 3 mg 3 ml INHALATION Q8H PRN #180 ml 06/01/20 09/05/20 Rx (2.5 mg base)/3 mL nebulization soln Fluticasone/Vilanterol [Breo 1 inh PO DAILY 09/05/20 09/06/20 History Ellipta 200-25 Mcg INH] Furosemide [Furosemide 20mg Tab*] 20 mg PO DAILY 09/05/20 09/06/20 History Nystatin [Nystatin Cr 100,000 1 applic TOPICAL BID 09/05/20 09/05/20 History Units/GM 30GM] Pantoprazole Sodium 40 mg PO DAILY 09/05/20 09/06/20 History Albuterol Sulfate [Albuterol 1 puff IH Q6HP PRN 09/06/20 09/06/20 History Sulfate Hfa] Cyclobenzaprine HCl 10 mg PO HSP PRN 09/06/20 09/06/20 History [Cyclobenzaprine 10mg Tab*] Escitalopram Oxalate [Lexapro] 20 mg PO DAILY 09/06/20 09/06/20 History Gabapentin 800 mg PO TID 09/06/20 09/06/20 History Hydrocodone/Acetaminophen 1 each PO DAILYP PRN 09/06/20 09/06/20 History [Hydrocodone-Acetamin 5-325 mg] Metoprolol Succinate [Metoprolol 100 mg PO DAILY 09/06/20 09/06/20 History Succinate 100mg Tablet*] Allergies Allergy/AdvReac Type Severity Reaction Status Date / Time amoxicillin [From Augmentin] Allergy Severe Rash Verified 09/05/20 1
[2020-09-06 10:25] LABS: Lymphocytes % 9 % (10-50); Monocytes % 4 % (2-9); Neutrophils % 85 % (42-76); Platelet Estimate Normal; RBC Morphology Normal; Total Cells Counted 100
--- NOTE | 2020-09-06 11:16 | HMH.PULMCON ---
*Admission Date: 09/06/20 *Reason for consult:: Chronic hypoxic respiratory failure, COPD exacerbation *History of present illness: Ms. Menchaca is a 60-year-old female greater than [id number] smoking history currently smoking carries a prior diagnosis COPD on long-term oxygen therapy at 2 L for the last 2 years using Breo inhaler however noncompliant with her inhaler therapy presented to the hospital with progressively worsening respiratory failure associated with increasing productive phlegm and worsening lower extremity swelling, not associated with any fevers or chills. [facility] History Medical History: Reports:: Anxiety, Congestive Heart Failure, Chronic Obstructive Pulmonary Disease (COPD), Depression, Gastroesophageal Reflux Disease(GERD), Hypertension, Lung Disease, Renal Insufficiency Denies:: Cancer, Diabetes Mellitus Type 1, Diabetes Mellitus Type 2, MRSA *Have you ever received a pneumonia vaccine?: No *Have you received a flu vaccine this season?: Yes Other Medical History: Reports: Arthritis, Fibromyalgia, Sinus Problems, Other Laterality Cases: Left: Total Knee Replacement Other Surgeries: Yes: Appendectomy, Cholecystectomy, Hernia Repair, Other Amputation: No Fractures: Yes - *Social History Last grade of school completed: 9th or 10th Smoking Status: Current every day smoker Tobacco Type: cigarettes # Packs/Day (cigarettes): 1 #Yrs smoked (if former smoker): 30 Alcohol Intake: never Substance Use Type: marijuana *Occupational Status:: unemployed Housing: apartment Household Members: none *Travel in the last 8 weeks: None - Psychiatric History Pschychiatric History:: Reports:: Anxiety, Depression Family Hx:: Asthma, Cancer, Coronary Artery Disease, Diabetes, Heart Attack, Hyperlipidemia, Hypertension ROS - Cons Denies anorexia, Denies body ache(s), Denies chills - Eyes Denies blurry vision - ENT Denies bleeding gums - Card Reports shortness of breath with activity, Reports leg swelling, Reports shortness of breath when lying down - Resp Respiratory: Reports chest congestion, Reports cough, Reports excessive phlegm production - GI Gastrointestingal: Reports: system reviewed and no additional complaints, except as docu - Psych Reports abnormal sleep pattern Meds Home Medications Medication Instructions Recorded Confirmed Type buspirone 15 mg tablet 15 mg PO TID tab 10/05/18 09/05/20 History risperidone 1 mg tablet 1 mg PO HS 01/14/19 09/06/20 History hydroxyzine HCl 50 mg tablet 50 mg PO TIDP PRN tab 02/21/20 09/06/20 History ciclopirox 8 % topical solution 1 applic TOPICAL DAILY 60 Days 03/22/20 09/05/20 Rx #6.6 ml fluticasone propionate 50 1 spray INTRANASAL DAILY PRN 03/22/20 09/05/20 History mcg/actuation nasal spray,suspension ipratropium 0.5 mg-albuterol 3 mg 3 ml INHALATION Q8H PRN #180 ml 06/01/20 09/05/20 Rx (2.5 mg base)/3 mL nebulization soln Fluticasone/Vilanterol [Breo 1 inh PO DAILY 09/05/20 09/06/20 History Ellipta 200-25 Mcg INH] Furosemide [Furosemide 20mg Tab*] 20 mg PO DAILY 09/05/20 09/06/20 History Nystatin [Nystatin Cr 100,000 1 applic TOPICAL BID 09/05/20 09/05/20 History Units/GM 30GM] Pantoprazole Sodium 40 mg PO DAILY 09/05/20 09/06/20 History Albuterol Sulfate [Albuterol 1 puff IH Q6HP PRN 09/06/20 09/06/20 History Sulfate Hfa] Cyclobenzaprine HCl 10 mg PO HSP PRN 09/06/20 09/06/20 History [Cyclobenzaprine 10mg Tab*] Escitalopram Oxalate [Lexapro] 20 mg PO DAILY 09/06/20 09/06/20 History Gabapentin 800 mg PO TID 09/06/20 09/06/20 History Hydrocodone/Acetaminophen 1 each PO DAILYP PRN 09/06/20 09/06/20 History [Hydrocodone-Acetamin 5-325 mg] Metoprolol Succinate [Metoprolol 100 mg PO DAILY 09/06/20 09/06/20 History Succinate 100mg Tablet*] Allergies Allergy/AdvReac Type Severity Reaction Status Date / Time amoxicillin [From Augmentin] Allergy Severe Rash Verified 09/05/20 13:31 ciprofloxacin Allergy Severe Rash Verified 09/05
--- NOTE | 2020-09-06 14:35 | SW/DCPLANNER ---
This patient does receive home O2, portable, nebulizer machine and Bi-Pap thru [facility]: Comfort Steiner has confirmed.
--- NOTE | 2020-09-06 16:19 | PC.NURSE ---
Pt has been pleasant and cooperative this shift. A&O X4. No complaints of pain or SOA. Pt is receiving O2 via NC @ 3 LPM with sats. >90%. Lung sounds reveal wheezing. 2 + pitting edema noted to BLE. Telemetry reveals NSR. Redness noted under breasts and abdominal folds. F/C patent and draining clear, yellow urine at bedside to gravity. No BM this shift. Appetite is good and pt eats the majority of all meals. 20 G peripheral IV in the RT AC is patent and SL. VSS. Call light within reach. Will continue to monitor.
[2020-09-07] VITALS (16 sets, daily range): BP systolic 114–174; BP diastolic 48–81; PULSE 71–90; RESP 17–20; TEMP 36.6–36.9; O2SAT 91–95; BMI 50.3
--- NOTE | 2020-09-07 03:53 | PC.NURSE ---
pt currently wearing 3LNC. iv patent. no acute changes. generalized pain reported and prn med given. pt took a shower this shift. 1 assist with ambulation. pt requesting for home health to be considered on discharge and was wanting to inquire over BSC and hospital bed for at home. will talk with care management when they arrive to inform them of pt inquires. espinoza draining clear yellow urine. vss. call light in reach. will continue to monitor.
--- NOTE | 2020-09-07 04:35 | PC.NURSE ---
telemetry reads NSR. unable to obtain sputum this shift. pt has a cough but it is nonproductive
[2020-09-07 07:04] LABS: Basophils % 0.4 % (0.1-2.0); Eosinophils % 0.4 % (0.1-12.0); Hematocrit 43.1 % (37.0-47.0); Hemoglobin 12.5 g/dL (12.2-16.2); Lymphocytes # 1.5 K/mm3 (0.7-4.5); Lymphocytes % 15.2 % (10-50); Mean Corpuscular HGB Conc 29.1 g/dL (31.8-35.4); Mean Corpuscular Hemoglobin 30.5 pg (27.0-31.2); Mean Corpuscular Volume 104.7 fl (81-99); Mean Platelet Volume 8.4 fl (7.4-10.4); Monocytes # 0.6 K/mm3 (0.1-1.0); Monocytes % 5.7 % (1.7-9.3); Neutrophils # 7.6 K/mm3 (1.8-7.8); Neutrophils % 78.3 % (37.0-80.0); Platelet Count 240 K/mm3 (142-424); Red Blood Count 4.11 M/mm3 (4.20-5.40); Red Cell Distribution Width 15.8 % (11.5-17.5); White Blood Count 9.7 K/mm3 (4.8-10.8)
[2020-09-07 07:14] LABS: Chloride 95 mmol/L (98-107); Sodium 140 mmol/L (136-145)
[2020-09-07 07:15] LABS: Potassium 5.5 mmoL/L (3.5-5.1)
[2020-09-07 07:18] LABS: Blood Urea Nitrogen 42 mg/dl (7-17); Calcium 8.6 mg/dl (8.4-10.2); Creatinine Clearance Estimated 34 mL/min (50-200); Estimated Glomerular Filt Rate 38 ml/min (>60); GFR (African American) 47 ML/MIN (>60); Glucose 102 mg/dl (74-100)
[2020-09-07 07:40] LABS: Carbon Dioxide 43 mmol/L (22.0-30.0)
[2020-09-07 07:55] LABS: Anion Gap 6.5 mEq/L (5-15)
[2020-09-07 07:56] LABS: Carbon Dioxide 44 mmol/L (22.0-30.0)
[2020-09-07 07:57] LABS: Cholesterol 152 mg/dl (140-200); Triglycerides 154 mg/dl (30-150); VLDL Cholesterol 31 mg/dL (0-40)
[2020-09-07 07:58] LABS: Chol/HDL Ratio 3.5 (1-3.5); HDL Cholesterol 43 mg/dl (40-60)
[2020-09-07 08:09] LABS: Direct LDL Cholesterol 76.31 mg/dL (100-129)
--- NOTE | 2020-09-07 08:44 | HMH.ACPN2 ---
Internal Medicine - PN: Subj *Date: 09/07/20 *Time: 08:44 Interval history: pt laying in bed, asking for hospital bed, bedside toilet for home. pt states she has improved but does not feel she is ready to go home, still weak,edema and soa Exam Vital signs and Labs for Last 24 Hours: Temp Pulse Resp BP Pulse Ox 98.0 F 86 18 118/48 L 92 L 09/07/20 07:39 09/07/20 07:39 09/07/20 07:39 09/07/20 07:39 09/07/20 07:39 Laboratory Results - last 24 hr 09/06/20 07:15: Total Counted 100, Neutrophils % (Manual) 85 H, Band Neutrophils % 2.0, Lymphocytes % (Manual) 9 L, Monocytes % (Manual) 4, Platelet Estimate Normal, RBC Morphology Normal 09/06/20 07:15: Carbon Dioxide 43 H* 09/07/20 06:00: WBC 9.7 D, RBC 4.11 L, Hgb 12.5, Hct 43.1, MCV 104.7 H, MCH 30.5, MCHC 29.1 L, RDW 15.8, Plt Count 240, MPV 8.4, Neut % (Auto) 78.3, Lymph % (Auto) 15.2, [place] % (Auto) 5.7, Eos % (Auto) 0.4, Baso % (Auto) 0.4, Neut # (Auto) 7.6, Lymph # (Auto) 1.5, [place] # (Auto) 0.6, Eos # (Auto) 0.0, Baso # (Auto) 0.0 09/07/20 06:31: Sodium 140, Potassium 5.5 H D, Chloride 95 L, Carbon Dioxide 44 H*, Anion Gap 6.5, BUN 42 H D, Creatinine 1.40 H, Estimated Creat Clear 34, Estimated GFR 38 L, Est GFR ( Amer) 47 L, Glucose 102 H D, Calcium 8.6 09/07/20 06:31: Triglycerides 154 H, Cholesterol 152, LDL Cholesterol Direct 76.31 L, VLDL Cholesterol 31, HDL Cholesterol 43, Cholesterol/HDL Ratio 3.5 I & O for Last 24 hours: Intake & Output 09/04/20 09/05/20 09/06/20 09/07/20 11:59 11:59 11:59 11:59 Intake Total 650 / 650 1620 / 1620 Output Total 500 / 500 3250 / 3250 Balance 150 / 150 -1630 / -1630 Weight 281 lb 1 oz 284 lb 4 oz - Constitutional no acute distress, morbidly obese - *Routine HEENT Exam Head: Present: normocephalic Eye: Present: PERRL ENT: Present: mucous membranes moist - *Routine Neck Exam Present: supple. Absent: lymphadenopathy - *Routine Respiratory Exam Present: wheezes - *Routine Cardiovascular Exam Present: RRR - *Routine Abdominal Exam Present: soft, normoactive bowel sounds. Absent: tenderness - *Routine Rectal Exam Patient deferred: visual exam Digital: Present: normal inspection Comments: swelling,red - *Routine Extremities Exam Present: edema. Absent: cyanosis, clubbing - *Routine Skin Exam Present: dry, warm. Absent: rash - *Routine Neurological Exam Present: alert, oriented X3 - Routine Psychiatric Exam Present: normal affect Assessment and Plan (1) Congestive heart failure Status: Acute Qualifiers: Heart failure type: unspecified Heart failure chronicity: acute on chronic Qualified Code(s): I50.9 - Heart failure, unspecified Category: Medical Code(s): I50.9 - Heart failure, unspecified (2) Acute exacerbation of chronic obstructive airways disease Status: Acute Category: Medical Code(s): J44.1 - Chronic obstructive pulmonary disease with (acute) exacerbation (3) Peripheral neuropathy Status: Chronic Qualifiers: Peripheral neuropathy type: idiopathic neuropathy, unspecified Qualified Code(s): G60.9 - Hereditary and idiopathic neuropathy, unspecified Category: Medical Code(s): G62.9 - Polyneuropathy, unspecified (4) Lumbar facet joint pain Status: Acute Category: Medical Code(s): M54.5 - Low back pain (5) Obesity Status: Acute Qualifiers: Obesity type: due to excess calories Obesity classification: adult class 3 (BMI >= 40) Serious obesity comorbidity presence: with serious comorbidity Body mass index: BMI 45.0-49.9 Qualified Code(s): E66.01 - Morbid (severe) obesity due to excess calories; Z68.42 - Body mass index [BMI] 45.0-49.9, adult Category: Medical Code(s): E66.9 - Obesity, unspecified (6) Tobacco use Status: Acute Category: Social Hx Code(s): Z72.0 - Tobacco use (7) H/O kidney removal Status: Acute Category: Surgical Code(s): Z90.5 - Acquired absence of kidney (8) Fibromya
--- NOTE | 2020-09-07 09:17 | HMH.PNCARD ---
Subjective Date: 09/07/20 Time: 08:00 Principal diagnosis: Shortness of breath and edema Interval history: 60-year-old female presented to [facility] with increased shortness of breath and bilateral edema of the lower extremities. Patient stated she had been having this increased shortness of breath with edema for the past week. Patient states that she does have history of COPD and congestive heart failure along with pneumonia. Patient was ruled out as a STEMI. Patient does require oxygen at 2.5 L upon this admission and at home. Patient was started on Lasix IV to diurese due to elevated BNP. Patient was also started on Aldactone 25 mg twice daily. Creatinine this morning was 1.40 with a BUN of 42. Potassium had elevated to 5.5 which was most likely due to starting the Aldactone 25 mg twice daily. Echocardiogram was performed this morning revealed 55% EF with a grade 1 diastolic dysfunction. Patient denies chest pain, tightness or pressure. Patient does complain of shortness of breath but does state shortness of breath has improved slightly. 1+ pedal edema noted of the lower extremities. Patient states this is not new for her. Patient did admit that she does consume a significant amount of soda during the day. Advised patient to decrease her fluid intake especially soda due to additional edema. Denies fever or nausea or vomiting. Patient did diurese well throughout the day yesterday and evening. Would like to see patient continue to diurese as she has been. Therefore we recommend patient stay on current dose of Lasix IV. Pending on how patient continues to respond to the diuretics. Echo:Conclusion 1. Biatrial enlargement, normal left ventricular size, visually estimated ejection fraction 55% with no regional wall motion abnormality, grade 1 diastolic dysfunction seen without tissue Doppler evidence of raise left atrial pressure. 2. Moderately enlarged right ventricle with normal contractility. 3. Trace mitral and tricuspid regurgitation. 4. No significant pericardial effusion noted. Discussed plan of care with Dr. Abdullahi and PCP. Patient is diuresing well being on the Lasix IV. Potassium did slightly elevate due to being on Aldactone. Due to potassium becoming slightly elevated, we will stop the Aldactone. Discussed with patient the importance of decreasing fluid intake especially soda intake due to additional swelling. Patient verbalized understanding. No further cardiac testing is needed at this time. We will continue patient on IV Lasix at this time. Would like to see patient to continue to diurese. Please notify cardiology of any changes in patient status. Thank you for allowing cardiology to participate in the care of this patient. Exam Vital signs and Labs for Last 24 Hours: Temp Pulse Resp BP Pulse Ox 98.0 F 86 18 118/48 L 92 L 09/07/20 07:39 09/07/20 07:39 09/07/20 07:39 09/07/20 07:39 09/07/20 07:39 Laboratory Results - last 24 hr 09/06/20 07:15: Total Counted 100, Neutrophils % (Manual) 85 H, Band Neutrophils % 2.0, Lymphocytes % (Manual) 9 L, Monocytes % (Manual) 4, Platelet Estimate Normal, RBC Morphology Normal 09/06/20 07:15: Carbon Dioxide 43 H* 09/07/20 06:00: WBC 9.7 D, RBC 4.11 L, Hgb 12.5, Hct 43.1, MCV 104.7 H, MCH 30.5, MCHC 29.1 L, RDW 15.8, Plt Count 240, MPV 8.4, Neut % (Auto) 78.3, Lymph % (Auto) 15.2, [place] % (Auto) 5.7, Eos % (Auto) 0.4, Baso % (Auto) 0.4, Neut # (Auto) 7.6, Lymph # (Auto) 1.5, [place] # (Auto) 0.6, Eos # (Auto) 0.0, Baso # (Auto) 0.0 09/07/20 06:31: Sodium 140, Potassium 5.5 H D, Chloride 95 L, Carbon Dioxide 44 H*, Anion Gap 6.5, BUN 42 H D, Creatinine 1.40 H, Estimated Creat Clear 34, Estimated GFR 38 L, Est GFR ( Amer) 47 L, Glucose 102 H D, Calcium 8.6 09/07/20 06:31: Triglycerides 154 H, Cholesterol 152, LDL Cholesterol Direct 76.31 L, VLDL Cholesterol 31, HDL Cholesterol 43, Cholesterol/HDL Ratio 3.5 I & O for Last 24 hours:
--- NOTE | 2020-09-07 09:54 | HMH.OTEV ---
OT Inpatient Evaluation Rehab OT IP Evaluation Start: 09/07/20 08:38 Freq: ONCE Status: Complete Protocol: Document 09/07/20 09:44 CLAUDIA (Rec: 09/07/20 09:54 [id number]) Rehab OT IP Assessment Subjective History 60yo F presents to the emergency department from Dr. Krueger's office with concern for shortness of breath and worsening lower extremity edema. Patient reports the symptoms been progressively worsening over the past several days to weeks. She denies fever. She denies nausea/vomiting/diarrhea. Patient reports taking all home medications as directed. Patient continues to smoke, but states she is trying to decrease her tobacco use. She denies chest pain. pt with chf and was admitted for eval and treatment Subjective I can try to get up. I would rather sit in the chair. Instructed Patient on safety awareness during transition from supine->sit @ EOB->SPT with usage of straight cane. Patient completed transfer requiring CGA with no LOB noted. Patient brandon B socks on independently after s/u with sitting up @ EOB. Objective Patient Orientation Person,Name,Birthday,Year Upper Extremity Gross ROM WNL Bed Mobility bed mobility - supine/sit Assist Level Contact Guard/Hand Hold Transfer Training Sit/Stand Transfer Assist Level Contact Guard/Hand Hold Chair Transfer Ability Contact Guard/Hand Hold Chair Transfer Technique Stand Step Pivot Chair Transfer Assistive Devices Straight Cane Lower Body Dressing Ability Independent Rehab OT IP prob,goals,plan Problems Date of Evaluation: 09/07/20 OT IP Problems Bed Mobility,Transfers,Balance ,Self care,Safety Rehab Potential Rehab Potential Good Equipment Needs Assistive Devices Straight Cane Plan OT intervention Plan Bed Mobility,Transfers,Balance ,Self care,Safety,Ther
--- NOTE | 2020-09-07 11:50 | HMH.PULMPN ---
Internal Medicine - PN: Subj *Date: 09/07/20 *Time: 11:50 Interval history: No acute respiratory events overnight. Exam - Constitutional Constitutional:: Present: no acute distress, comfortable - HENMT Exam HENMT: Present: normocephalic, atraumatic - Eye Exam Eyes:: Present: eyelids normal - Neck Exam Neck:: Present: thyroid normal - Respiratory Exam Respiratory:: Present: normal breath sounds, no respiratory distress, normal respiratory effort, wheezing - Cardiovascular Exam Cardiac:: Present: S1, S2 - GI Exam GI:: Present: soft, obese - Skin Exam Skin: Present: warm, no rash - Neurological Exam Neurological: Present: alert, awake, normal cognition - Extremities Exam Extremities: Present: no cyanosis, no clubbing, edema - Psychiatric Exam Psychiatric: Present: normal affect Assessment and Plan (1) Congestive heart failure Status: Acute Qualifiers: Heart failure type: unspecified Heart failure chronicity: acute on chronic Qualified Code(s): I50.9 - Heart failure, unspecified Category: Medical Code(s): I50.9 - Heart failure, unspecified (2) Acute exacerbation of chronic obstructive airways disease Status: Acute Category: Medical Code(s): J44.1 - Chronic obstructive pulmonary disease with (acute) exacerbation (3) Peripheral neuropathy Status: Chronic Qualifiers: Peripheral neuropathy type: idiopathic neuropathy, unspecified Qualified Code(s): G60.9 - Hereditary and idiopathic neuropathy, unspecified Category: Medical Code(s): G62.9 - Polyneuropathy, unspecified (4) Lumbar facet joint pain Status: Acute Category: Medical Code(s): M54.5 - Low back pain (5) Obesity Status: Acute Qualifiers: Obesity type: due to excess calories Obesity classification: adult class 3 (BMI >= 40) Serious obesity comorbidity presence: with serious comorbidity Body mass index: BMI 45.0-49.9 Qualified Code(s): E66.01 - Morbid (severe) obesity due to excess calories; Z68.42 - Body mass index [BMI] 45.0-49.9, adult Category: Medical Code(s): E66.9 - Obesity, unspecified (6) Tobacco use Status: Acute Category: Social Hx Code(s): Z72.0 - Tobacco use (7) H/O kidney removal Status: Acute Category: Surgical Code(s): Z90.5 - Acquired absence of kidney (8) Fibromyalgia Status: Acute Category: Medical Code(s): M79.7 - Fibromyalgia (9) JI (acute kidney injury) Status: Acute Category: Medical Code(s): N17.9 - Acute kidney failure, unspecified (10) Acute respiratory failure with hypoxia Status: Acute Category: Medical Code(s): J96.01 - Acute respiratory failure with hypoxia (11) SIRS (systemic inflammatory response syndrome) Status: Acute Category: Medical Code(s): R65.10 - Systemic inflammatory response syndrome (SIRS) of non-infectious origin without acute organ dysfunction - Assessment and plan all Dx Assessment and Plan for all problems:: #Chronic hypoxic respiratory failure: # COPD exacerbation: #Community-acquired pneumonia: 60-year-old current smoker greater than [id number] smoking history long-term oxygen therapy 2.5 L, noncompliant with her Breo inhaler, never evaluated for sleep apnea presented to the hospital with worsening respiratory failure is with increasing sputum production and worsening lower extremity swelling. Chest at admission found to have questionable right lower lobe pulmonary fluid/pleural effusion. Febrile. No evidence of leukocytosis. Patient admission was initiated on ceftriaxone azithromycin for community-acquired pneumonia along with treatment for COPD exacerbation. Cardiology was also consulted and initiated on diuresis protocol. Etiology of this patient respiratory failure likely combination of COPD exacerbation and CHF exacerbation. Noted infiltrate in left lower lobe can be likely secondary from pleural effusion. Interval update: Patient respiratory status continued to improve with d
--- NOTE | 2020-09-07 11:53 | HMH.PTEV ---
Physical Therapy Evaluation Rehab PT IP Evaluation Start: 09/07/20 08:38 Freq: ONCE Status: Active Protocol: Document 09/07/20 11:10 PHORASHER (Rec: 09/07/20 11:53 PHORNE [id number]) Subjective/History History History 60 yowf adm to [facility] with COPD and CHF exac. She reports she lives alone with no steps to enter the home. She reports she is generally independent with mobility using a straight cane. Subjective Subjective Pt reports she fells tired and a little off this morning. Rehab PT IP Eval Objective Appearance Patient Behavior Appropriate Patient Orientation Person,Place,Time Difficulty following instructions none Speech Pattern Clear Ambulation Patient Able to Ambulate Yes Ambulation Observation IP General Gait Pattern Observation Wide Based Gait Ambulation Distance (feet) 30 Ambulation Assistive Device Straight Cane Ambulation Ability Contact Guard/Hand Hold Balance Ability to Arise Able, uses arms to help Sitting Balance Steady, safe Standing Balance Steady, wide stance Dynamic Sitting Balance Ability Good Dynamic Standing Balance Ability Fair Transfers Bed Transfer Ability Contact Guard/Hand Hold Chair Transfer Ability Contact Guard/Hand Hold Sit to Stand Bed Transfer Ability Contact Guard/Hand Hold Sit to Stand Chair Transfer Ability Contact Guard/Hand Hold ROM All Extremities PT ROM Status WFL MMT All Extremities PT MMT WFL Rehab PT IP prob,goals,plan Problems Date of Evaluation: 09/07/20 PT IP Problems Transfers,Gait Rehab Potential Rehab Potential Good Plan PT Intervention Plan Transfers,Gait,Therapeutic Exercise PT Plan Frequency BID Duration LOS Discharge Goals Bed Transfer Ability Supervision/Stand by Sit to Stand Chair Transfer Ability Supervision/Stand by Ambulation Assistive Device Straight Cane Ambulation Distance (feet) 40 Discharge Plan PT Discharge Plan Pt is appropriate to return home once medically stable. G -code Required No Eval Complexity Eval Charge Codes 14471 - Moderate Complexity PHYSICIAN CERTIFICATION: I certify the specified therapy services for Rose Lund are required, authorized, and reviewed every 30 days.
--- NOTE | 2020-09-07 13:42 | PC.NURSE ---
Pt would benefit from a BSC and hospital bed due to distance from bathroom and mobility issues.
--- NOTE | 2020-09-07 13:56 | SW/DCPLANNER ---
SET PATIENT UP WITH A HOSPITAL BED AND BEDSIDE COMMODE WITH [facility] PER PATIENT CHOICE AND SHE HAS A HOME HEALTH ORDER FOR PT/OT AND NURSING HOME AND PATIENT CHOSE SINCE THEY CAN ACCEPT PATIENTS INSURANCE... SHE IS TO DISCHARGE IN THE AM... ([facility]) HOME HEALTH SERVICES TO START ON THURSDAY.... CONCURRED WITH THE PLAN...
--- NOTE | 2020-09-07 14:22 | PC.NURSE ---
PT IS UNABLE TO TOLERATE LAYING FLAT IN BED TO SLEEP R/T SHORTNESS OF AIR SECONDARY TO HER DIAGNOSIS OF CHF. SHE WILL NEED A HOSPITAL BED ON DISCHARGE IN ORDER TO SLEEP COMFORTABLY AND RELIEVE HER SHORTNESS OF BREATH.
--- NOTE | 2020-09-07 18:58 | PC.NURSE ---
she is aox4, espinoza removed this shift, good urine out put thus far, she has denied pain. up to chair for most of shift, no n/v/d noted.
--- NOTE | 2020-09-07 19:05 | PC.NURSE ---
RA SATS 88 RETURN PT TO 2.5LPM NC
--- NOTE | 2020-09-07 19:45 | PC.NURSE ---
SPUTUM INDUCTED PT ABLE TO MAKE PRODUCTIVE COUGH. SPUTUM SENT TO LAB
[2020-09-08] VITALS (9 sets, daily range): BP systolic 111–125; BP diastolic 57–64; PULSE 70–93; RESP 18–20; TEMP 36.6–36.8; O2SAT 64–93; BMI 50.7
--- NOTE | 2020-09-08 04:10 | PC.NURSE ---
pt reports tremors to hands and legs this evening. new order for nicotine patch obtained. new iv patient placed this shift. pt was up to chair this evening. had a bath. 3LNC in use. standby assist for transfers. alert and oriented. uses call light appropriately.call light in reach. vss. will continue to monitor
[2020-09-08 07:14] LABS: Basophils % 0.3 % (0.1-2.0); Eosinophils % 0.4 % (0.1-12.0); Hematocrit 40.3 % (37.0-47.0); Lymphocytes # 1.6 K/mm3 (0.7-4.5); Lymphocytes % 20.8 % (10-50); Mean Corpuscular HGB Conc 29.9 g/dL (31.8-35.4); Mean Corpuscular Volume 100.1 fl (81-99); Mean Platelet Volume 7.4 fl (7.4-10.4); Monocytes # 0.5 K/mm3 (0.1-1.0); Monocytes % 6.1 % (1.7-9.3); Neutrophils # 5.6 K/mm3 (1.8-7.8); Neutrophils % 72.5 % (37.0-80.0); Platelet Count 184 K/mm3 (142-424); Red Blood Count 4.02 M/mm3 (4.20-5.40); Red Cell Distribution Width 15.4 % (11.5-17.5); White Blood Count 7.8 K/mm3 (4.8-10.8)
[2020-09-08 07:27] LABS: Blood Urea Nitrogen 55 mg/dl (7-17); Creatinine Clearance Estimated 32 mL/min (50-200); Estimated Glomerular Filt Rate 36 ml/min (>60); GFR (African American) 43 ML/MIN (>60)
[2020-09-08 07:28] LABS: Calcium 8.8 mg/dl (8.4-10.2); Glucose 90 mg/dl (74-100)
[2020-09-08 07:49] LABS: Chloride 92 mmol/L (98-107); Potassium 5.2 mmoL/L (3.5-5.1); Sodium 140 mmol/L (136-145)
[2020-09-08 08:02] LABS: Anion Gap 6.2 mEq/L (5-15); Carbon Dioxide 47 mmol/L (22.0-30.0)
--- NOTE | 2020-09-08 10:27 | HMH.DCSUM ---
General - General Admission date:: 09/05/20 Discharge date: 09/08/20 HPI HPI: this pr was seen in pcp office and asked to go to ed -pt with sob and lower ext swelling - no chest pain and was noted to be increased sob- she was seen in the ed -tient c/o increasing shortness of air and generalized body swelling worsening x 1 week, sent to ED from PCP office for low spo2. 60yo F presents to the emergency department from Dr. Krueger's office with concern for shortness of breath and worsening lower extremity edema. Patient reports the symptoms been progressively worsening over the past several days to weeks. She denies fever. She denies nausea/vomiting/diarrhea. Patient reports taking all home medications as directed. Patient continues to smoke, but states she is trying to decrease her tobacco use. She denies chest pain. pt with chf and was admitted for eval and treatment Hospital Course Hospital Course: Laboratory Tests 09/05/20 09/05/20 09/05/20 14:30 14:30 14:30 WBC 9.2 RBC 4.38 Hgb 13.1 Hct 43.8 MCV 99.9 H MCH 29.9 MCHC 29.9 L RDW 16.2 Plt Count 271 MPV 7.4 Neut % (Auto) 76.3 Lymph % (Auto) 16.6 [place] % (Auto) 4.8 Eos % (Auto) 1.7 Baso % (Auto) 0.6 Neut # (Auto) 7.0 Lymph # (Auto) 1.5 [place] # (Auto) 0.4 Eos # (Auto) 0.2 Baso # (Auto) 0.1 Total Counted Neutrophils % (Manual) Band Neutrophils % Lymphocytes % (Manual) Monocytes % (Manual) Platelet Estimate RBC Morphology Sodium 142 Potassium 4.1 Chloride 97 L Carbon Dioxide 42 H* Anion Gap 7.1 BUN 31 H Creatinine 1.40 H Estimated Creat Clear 36 Estimated GFR 38 L Est GFR ( Amer) 47 L Glucose 97 Calcium 9.1 Total Bilirubin 0.4 AST 26 ALT 30 Alkaline Phosphatase 81 Troponin I 0.02 NT-Pro-B Natriuret Pep 5150 H Total Protein 6.6 Albumin 3.8 Globulin 2.8 Albumin/Globulin Ratio 1.4 Triglycerides Cholesterol LDL Cholesterol Direct VLDL Cholesterol HDL Cholesterol Cholesterol/HDL Ratio Urine Color Urine Appearance Urine pH Ur Specific [place] Urine Protein Urine Glucose (UA) Urine Ketones Urine Blood Urine Nitrate Urine Bilirubin Urine Urobilinogen Ur Leukocyte Esterase Urine RBC Urine WBC Ur Squamous Epith Cells Urine Bacteria 09/05/20 09/05/20 09/05/20 16:30 17:10 19:48 WBC RBC Hgb Hct MCV MCH MCHC RDW Plt Count MPV Neut % (Auto) Lymph % (Auto) [place] % (Auto) Eos % (Auto) Baso % (Auto) Neut # (Auto) Lymph # (Auto) [place] # (Auto) Eos # (Auto) Baso # (Auto) Total Counted Neutrophils % (Manual) Band Neutrophils % Lymphocytes % (Manual) Monocytes % (Manual) Platelet Estimate RBC Morphology Sodium Potassium Chloride Carbon Dioxide Anion Gap BUN Creatinine Estimated Creat Clear Estimated GFR Est GFR ( Amer) Glucose Calcium Total Bilirubin AST ALT Alkaline Phosphatase Troponin I 0.02 0.02 NT-Pro-B Natriuret Pep Total Protein Albumin Globulin Albumin/Globulin Ratio Triglycerides Cholesterol LDL Cholesterol Direct VLDL Cholesterol HDL Cholesterol Cholesterol/HDL Ratio Urine Color Yellow Urine Appearance Clear Urine pH 6.0 Ur Specific [place] 1.020 Urine Protein Negative Urine Glucose (UA) Negative Urine Ketones Negative Urine Blood Negative Urine Nitrate Negative Urine Bilirubin Negative Urine Urobilinogen 0.2 Ur Leukocyte Esterase Negative Urine RBC None Urine WBC Occasional Ur Squamous Epith Cells Occasional Urine Bacteria Trace 09/06/20 09/06/20 09/07/20 07:15 07:15 06:00 WBC 7.2 9.7 D RBC 4.12 L 4.11 L Hgb 12.6 12.5 Hct 42.5 43.1 MCV 103.3
== END 2020-09-08 12:45 | disposition home health service (06) | DRG 291 ==
LOC: ER 14:55 → 2ND 17:25
PROVIDERS: Nurse Practitioner Family; Admitting Provider Emergency Medicine; Emergency Provider Family Medicine; PCP Emergency Medicine; Visit Provider Emergency Medicine
DX: I13.0 Hypertensive heart and chronic kidney disease with heart failure and stage 1 through stage 4 chronic kidney disease, or unspecified chronic kidney disease (principal); J96.01 Acute respiratory failure with hypoxia; N17.9 Acute kidney failure, unspecified; Z68.43 Body mass index [BMI] 50.0-59.9, adult; I50.9 Heart failure, unspecified; N18.9 Chronic kidney disease, unspecified; Z90.5 Acquired absence of kidney; J44.9 Chronic obstructive pulmonary disease, unspecified; Z99.81 Dependence on supplemental oxygen; E66.9 Obesity, unspecified; Z72.0 Tobacco use; Z88.0 Allergy status to penicillin; Z88.2 Allergy status to sulfonamides; Z88.8 Allergy status to other drugs, medicaments and biological substances; Z79.51 Long term (current) use of inhaled steroids; Z79.899 Other long term (current) drug therapy
CPT/HCPCS: 36415; 71045; 80048; 80053; 80061; 81001; 83880; 84484; 85007; 85025; 87070; 87205; 93005; 93306; 94640; 94761; 96365; 96375; 97116; 97162; 97165; 97530; 99284; J0456; J2405; U0003

== ENCOUNTER 2020-09-10 12:45 | Inpatient (IN) | payer OTHER, SELFPAY ==
[2020-09-10] VITALS (16 sets, daily range): BP systolic 126–158; BP diastolic 71–97; PULSE 69–81; RESP 13–24; TEMP 36.1–36.9; O2SAT 66–98; BMI 50.6
--- NOTE | 2020-09-10 12:52 | XR_ITS ---
PROCEDURE: XR CHEST PORTABLE CLINICAL HISTORY: soa Shortness of air COMPARISON: No exams were available for comparison FINDINGS: The cardiomediastinal silhouette and pulmonary vascularity are within normal limits. Dense consolidation is present in the right upper lobe consistent with pneumonia. This has developed since the previous exam. No acute bony abnormalities. IMPRESSION: Right upper lobe pneumonia Dictated by: Mati Caro MD 09/10/2020 15:43 Mati Caro MD in [place] 09/10/2020 15:43
--- NOTE | 2020-09-10 12:58 | PC.NURSE ---
Patient placed on bipap at this time.
[2020-09-10 13:09] LABS: Basophils % 0.2 % (0.1-2.0); Eosinophils % 0.4 % (0.1-12.0); Hematocrit 42.8 % (37.0-47.0); Hemoglobin 12.8 g/dL (12.2-16.2); Lymphocytes # 0.8 K/mm3 (0.7-4.5); Lymphocytes % 8.8 % (10-50); Mean Corpuscular HGB Conc 29.9 g/dL (31.8-35.4); Mean Corpuscular Hemoglobin 30.2 pg (27.0-31.2); Mean Platelet Volume 8.4 fl (7.4-10.4); Monocytes # 0.4 K/mm3 (0.1-1.0); Monocytes % 4.5 % (1.7-9.3); Neutrophils # 8.1 K/mm3 (1.8-7.8); Neutrophils % 86.1 % (37.0-80.0); Platelet Count 171 K/mm3 (142-424); Red Blood Count 4.24 M/mm3 (4.20-5.40); Red Cell Distribution Width 15.1 % (11.5-17.5); White Blood Count 9.4 K/mm3 (4.8-10.8)
--- NOTE | 2020-09-10 13:09 | ECG_ITS ---
APPROVED REPORT Exam: Resting ECG HR:75 bpm ECG Measurements Heart Rate 75 AXES DE 126 P 69 QRSd 88 QRS 45 QT 358 T 50 QTc 399 Conclusion Normal sinus rhythm T wave abnormality, consider anterior ischemia Abnormal ECG Electronically signed by : Armand Montgomery, 09/11/2020 17:20:53
[2020-09-10 13:11] LABS: MANUAL DIFFERENTIAL MANUAL DIFFERENTIAL (MANUAL DIFF)
[2020-09-10 13:17] LABS: Chloride 93 mmol/L (98-107)
[2020-09-10 13:18] LABS: Potassium 5.3 mmoL/L (3.5-5.1); Sodium 141 mmol/L (136-145)
[2020-09-10 13:20] LABS: Blood Urea Nitrogen 63 mg/dl (7-17); Creatinine Clearance Estimated 29 mL/min (50-200); Estimated Glomerular Filt Rate 31 ml/min (>60); GFR (African American) 37 ML/MIN (>60)
[2020-09-10 13:21] LABS: Alanine Aminotransferase 91 U/L (12-78); Albumin Level 3.7 g/dl (3.5-5.0); Albumin/Globulin Ratio 1.4 (1.1-1.8); Alkaline Phosphatase 68 U/L (38-126); Aspartate Amino Transferase 40 U/L (14-36); Bilirubin,Total 0.5 mg/dl (0.2-1.3); Globulin 2.7 g/dL (1.3-3.2); Glucose 117 mg/dl (74-100); Total Protein,Serum 6.4 g/dl (6.3-8.2)
[2020-09-10 13:27] LABS: ABG HCO3 41.7 mmhg (22.0-26.0); ABG Oxygen Saturation 94 % (90-100); ABG PH 7.22 mmol/L (7.35-7.45); ABG PO2 72.7 mmhg (80-100); ABG TCO2 44.9 mmhg (23-27)
[2020-09-10 13:28] LABS: Allen's Test Acceptable; Oxygen 50 %; PEEP 8; Pressure Support 16; Source Right Radial
[2020-09-10 13:29] LABS: ABG PCO2 104.1 mmhg (35.0-45.0)
[2020-09-10 13:33] LABS: Troponin I 0.02 ng/ml (0.00-0.034)
[2020-09-10 13:34] LABS: Anion Gap 6.3 mEq/L (5-15); Lymphocytes % 9 % (10-50); Macrocytosis 1+; Monocytes % 4 % (2-9); Neutrophils % 87 % (42-76); Platelet Estimate Normal; Total Cells Counted 100
[2020-09-10 13:35] LABS: Carbon Dioxide 47 mmol/L (22.0-30.0)
--- NOTE | 2020-09-10 13:36 | PC.NURSE ---
notified ER of critical results on ABG, RT called results states they are going to come down and make adjustments on pt bipap settings.
[2020-09-10 14:31] LABS: Lactic Acid 0.8 mmol/L (0.7-2.1)
[2020-09-10 15:11] LABS: NT Pro Brain Natriuretic Pep. 18400 pg/mL (0-125)
--- NOTE | 2020-09-10 15:25 | HMH.EDGENADL ---
ED Disposition Clinical Impression: CHF exacerbation Qualifiers: Heart failure type: unspecified Qualified Code(s): I50.9 - Heart failure, unspecified Disposition: Admitted As Inpatient Condition on Discharge: Fair Referrals: Sheng Krueger MD [Primary Care Provider] - Time of Disposition: 15:35 - Critical Care Critical Care Time: Yes Attestation: On 09/10/20, the high probability of a clinically significant, sudden or life threatening deterioration of the following system(s) required my full and direct attention, intervention and personal management. The time I documented below is in addition to time spent performing reported procedures but includes the following listed in this critical care notation. Total Critical Care Time: 45 Vital system(s) involved:: Respiratory Failure My critical care processes included: Assessment & monitoring of V/S, Initial and Re-exams, Data Review/Interpretation, Coordinating Care, Medication Orders and management, Documentation Medical Decision Making - Medical Records Medical records reviewed: Yes: I reviewed the patient's medical records. - Jason Inquiry Pt receiving controlled substance: No Vital Signs: 09/10/20 12:45 09/10/20 12:50 09/10/20 13:42 Temperature 98.5 F Temperature Source Oral Pulse Rate [Left Radial] 81 75 72 Respiratory Rate 24 20 Blood Pressure [Right Radial Artery] 126/76 140/77 Blood Pressure Mean [Right Radial Artery] 92 98 Blood Pressure Source [Right Radial Artery] Automatic Cuff Automatic Cuff Blood Pressure Position [Right Radial Artery] Sitting Sitting 02 Sat by Pulse Oximetry 66 L 94 L 98 Oxygen Delivery Method Nasal Cannula BiPAP BiPAP Oxygen Flow Rate (LPM) 6 09/10/20 15:03 Temperature 97.8 F Temperature Source Oral Pulse Rate [Left Radial] 69 Respiratory Rate 18 Blood Pressure [Right Radial Artery] 158/85 H Blood Pressure Mean [Right Radial Artery] 109 Blood Pressure Source [Right Radial Artery] Manual Cuff/ Doppler Blood Pressure Position [Right Radial Artery] Sitting 02 Sat by Pulse Oximetry 94 L Oxygen Delivery Method Oxygen Flow Rate (LPM) - Lab Data Lab results reviewed: Yes: I reviewed the patient's lab results. Lab Results 09/10/20 12:50: WBC 9.4, RBC 4.24, Hgb 12.8, Hct 42.8, MCV 101.0 H, MCH 30.2, MCHC 29.9 L, RDW 15.1, Plt Count 171, MPV 8.4, Neut % (Auto) 86.1 H, Lymph % (Auto) 8.8 L, [place] % (Auto) 4.5, Eos % (Auto) 0.4, Baso % (Auto) 0.2, Neut # (Auto) 8.1 H, Lymph # (Auto) 0.8, [place] # (Auto) 0.4, Eos # (Auto) 0.0, Baso # (Auto) 0.0, Total Counted 100, Neutrophils % (Manual) 87 H, Lymphocytes % (Manual) 9 L, Monocytes % (Manual) 4, Platelet Estimate Normal, Macrocytosis 1+ 09/10/20 12:50: Sodium 141, Potassium 5.3 H, Chloride 93 L, Carbon Dioxide 47 H*, Anion Gap 6.3, BUN 63 H, Creatinine 1.70 H, Estimated Creat Clear 29, Estimated GFR 31 L, Est GFR ( Amer) 37 L, Glucose 117 H, Calcium 9.0, Total Bilirubin 0.5, AST 40 H, ALT 91 H, Alkaline Phosphatase 68, Troponin I 0.02, Total Protein 6.4, Albumin 3.7, Globulin 2.7, Albumin/Globulin Ratio 1.4 09/10/20 12:50: Lactate 0.8 09/10/20 12:50: NT-Pro-B Natriuret Pep 48636 H 09/10/20 13:01: Specimen Source Right radial, O2 % 50, ABG pH 7.22 L*, ABG pCO2 104.1 H, ABG pO2 72.7 L, ABG HCO3 41.7 H, ABG Total CO2 44.9 H, ABG O2 Saturation 94, ABG Base Excess 14.0 H, Mati Test Acceptable, PEEP 8 Result diagrams: 09/10/20 12:50 09/10/20 12:50 Orders (Tests/Meds): ED MEDICATIONS Generic Name Dose Route Start Last Admin Trade Name Freq PRN Reason Stop Dose Admin Furosemide 40 mg 09/10/20 15:24 Furosemide 40mg/4ml Vial IV 09/10/20 15:25 ONCE ONE ORDERS Category Date Time Status Chest XR -- portable [XR chest portable] Stat Exams 09/10/20 12:52 Taken Covid-19 Nasal PCR ([facility]) Routine Lab 09/10/20 12:50 Received Troponin I Q3H Lab 09/10/20 16:00 Ordered Troponin I Q3H Lab 09/10/20 19:00 Ordered Blood Culture Stat Micro 09/10/20 12:
--- NOTE | 2020-09-10 15:26 | PC.NURSE ---
Provider at bedside discussing plan for admission.
--- NOTE | 2020-09-10 16:07 | PC.NURSE ---
resp notified of ABG AT 1800HRS
[2020-09-10 16:55] LABS: Troponin I 0.02 ng/ml (0.00-0.034)
[2020-09-10 17:58] LABS: ABG Base Excess 27.1 mmol/L (-2.4-2.3); ABG HCO3 54.3 mmhg (22.0-26.0); ABG Oxygen Saturation 96 % (90-100); ABG PH 7.25 mmol/L (7.35-7.45); ABG PO2 82.4 mmhg (80-100); ABG TCO2 58.2 mmhg (23-27)
[2020-09-10 17:59] LABS: Allen's Test Acceptable; Oxygen 50 %; PEEP 18/8; Source Right Radial
[2020-09-10 18:00] LABS: ABG PCO2 125.5 mmhg (35.0-45.0)
--- NOTE | 2020-09-10 18:06 | PC.NURSE ---
Respiratory called to change bipap settings based off abg results per Dr. Loomis request.
--- NOTE | 2020-09-10 18:30 | PC.NURSE ---
Pt arrived to the floor at this time.
[2020-09-10 19:39] LABS: Troponin I 0.02 ng/ml (0.00-0.034)
--- NOTE | 2020-09-10 21:17 | HMH.HP ---
*Admission Date: 09/10/20 *Chief complaint: sob *History of present illness: this wf presented to [facility] ed with sob - pt with recent [facility] admit - 10yo F with past medical history significant COPD, PTSD, DDD, JOSIE, obesity presented emergency department secondary to shortness of breath. Patient was satting in the 60s when EMS arrived. They placed her on BiPAP in the ambulance. The patient saturations have improved into the upper 80s. She is now working hard to breathe now per EMS. She dorsals mild chest pain that began today. She denies any radiation of her chest pain. She had no exertion to see if that promotes her chest pain. She took nothing prior to arrival today. She denies any fever, cough, nausea or vomiting. pt with abn abg and required bpap and was admitted [facility] History I have reviewed the patient's past medical history: Yes Medical History: Reports:: Anxiety, Congestive Heart Failure, Chronic Obstructive Pulmonary Disease (COPD), Depression, Gastroesophageal Reflux Disease(GERD), Hypertension, Lung Disease, Renal Insufficiency Denies:: Cancer, Diabetes Mellitus Type 1, Diabetes Mellitus Type 2, MRSA *Have you ever received a pneumonia vaccine?: No *Have you received a flu vaccine this season?: No Other Medical History: Reports: Arthritis, Fibromyalgia, Sinus Problems, Other Other Surgeries: Yes: Appendectomy, Cholecystectomy, Hernia Repair, Other Amputation: No Fractures: Yes - *Social History Smoking Status: Current every day smoker Tobacco Type: cigarettes # Packs/Day (cigarettes): 1 #Yrs smoked (if former smoker): 30 Alcohol Intake: never Substance Use Type: marijuana *Occupational Status:: unemployed Housing: apartment Household Members: none *Travel in the last 8 weeks: None - Psychiatric History Pschychiatric History:: Reports:: Anxiety, Depression Family Hx:: Asthma, Cancer, Coronary Artery Disease, Diabetes, Heart Attack, Hyperlipidemia, Hypertension Review of Systems - Review of Systems Review of systems:: pertinent systems reviewed and negative unless documented below - Constitutional Denies fever(s) - Eyes Denies change in vision - ENT Denies sore throat - *Cardiovascular Reports shortness of breath, Denies chest pain at rest - *Respiratory Reports cough, Reports shortness of breath, Denies coughing up blood - *Gastrointestinal Denies abdominal pain - *Genitourinary Denies blood in urine - *Musculoskeletal Denies joint pain - Integumentary/Breasts Denies rash - *Neurologic Denies dizziness, Denies headache(s), Denies seizure-like activity - Psychiatric Denies anxiety Meds Home Medications Medication Instructions Recorded Confirmed Type buspirone 15 mg tablet 15 mg PO TID tab 10/05/18 09/10/20 History risperidone 1 mg tablet 1 mg PO HS 01/14/19 09/10/20 History hydroxyzine HCl 50 mg tablet 50 mg PO TIDP PRN tab 02/21/20 09/10/20 History ciclopirox 8 % topical solution 1 applic TOPICAL DAILY 60 Days 03/22/20 09/10/20 Rx #6.6 ml fluticasone propionate 50 1 spray INTRANASAL DAILY PRN 03/22/20 09/10/20 History mcg/actuation nasal spray,suspension ipratropium 0.5 mg-albuterol 3 mg 3 ml INHALATION Q8H PRN #180 ml 06/01/20 09/10/20 Rx (2.5 mg base)/3 mL nebulization soln Fluticasone/Vilanterol [Breo 1 inh PO DAILY 09/05/20 09/10/20 History Ellipta 200-25 Mcg INH] Nystatin [Nystatin Cr 100,000 1 applic TOPICAL BID 09/05/20 09/10/20 History Units/GM 30GM] Pantoprazole Sodium 40 mg PO DAILY 09/05/20 09/10/20 History Albuterol Sulfate [Albuterol 1 puff IH Q6HP PRN 09/06/20 09/10/20 History Sulfate Hfa] Cyclobenzaprine HCl 10 mg PO HSP PRN 09/06/20 09/10/20 History [Cyclobenzaprine 10mg Tab*] Escitalopram Oxalate [Lexapro] 20 mg PO DAILY 09/06/20 09/10/20 History Gabapentin 800 mg PO TID 09/06/20 09/10/20 History Hydrocodone/Acetaminophen 1 each PO DAILYP PRN 09/06/20 09/10/20 History [Hydrocodone-Acetamin 5-325 mg] Metoprolol Succinate [Metopr
[2020-09-11] VITALS (15 sets, daily range): BP systolic 90–131; BP diastolic 50–73; PULSE 70–94; RESP 19–24; TEMP 36.4–38; O2SAT 89–98
--- NOTE | 2020-09-11 00:22 | PC.NURSE ---
patient unable to confirm time of last dose of medications due to being on bipap
--- NOTE | 2020-09-11 05:35 | PC.WOUNDNOTE ---
Wound Location: abdomen Length:3cm Width:3cm Depth: Undermining Y/N: Tunneling cm: Granulation %: Slough/necrotic tissue %: Inflammation/swelling Y/N: Pain and/or tenderness Y/N: Exudate: Serosanguinous Y Sanguinous Serosanguinous Seropurulent Purulent Color: Clear Y Vnaessa Cloudy/milky [place] Red Y Green Yellow Brown [place] Blue Consistency: Thick Thin Y Amount: None Scant Y Small Moderate Large Odor Y/N: N
--- NOTE | 2020-09-11 06:20 | PC.NURSE ---
shift summary pts lung sounds are diminished with sats maintained above 95% on Bipap. pts sats dropped early in the night maintaining around 80% for a short time, RT was notified and turned oxygen up on Bipap. pt does not tolerate activity well, once pt attempted to get out of bed while still on the Bipap, her sats dropped to 86% and pulse spiked to 157 but returned to normal within 3 minutes. pt is alert and oriented X4. pt denies any pain, nausea, vomiting, or diarrhea.
[2020-09-11 07:06] LABS: Basophils % 0.3 % (0.1-2.0); Eosinophils # 0.1 K/mm3 (0.0-0.4); Eosinophils % 0.9 % (0.1-12.0); Hematocrit 41.5 % (37.0-47.0); Hemoglobin 12.6 g/dL (12.2-16.2); Lymphocytes # 1.3 K/mm3 (0.7-4.5); Lymphocytes % 15.9 % (10-50); Mean Corpuscular HGB Conc 30.4 g/dL (31.8-35.4); Mean Corpuscular Hemoglobin 30.2 pg (27.0-31.2); Mean Corpuscular Volume 99.5 fl (81-99); Mean Platelet Volume 7.5 fl (7.4-10.4); Monocytes # 0.4 K/mm3 (0.1-1.0); Monocytes % 4.6 % (1.7-9.3); Neutrophils # 6.2 K/mm3 (1.8-7.8); Neutrophils % 78.3 % (37.0-80.0); Platelet Count 162 K/mm3 (142-424); Red Blood Count 4.17 M/mm3 (4.20-5.40); Red Cell Distribution Width 15.3 % (11.5-17.5)
[2020-09-11 07:15] LABS: Blood Urea Nitrogen 50 mg/dl (7-17); Calcium 9.1 mg/dl (8.4-10.2); Carbon Dioxide 38 mmol/L (22.0-30.0); Chloride 92 mmol/L (98-107); Creatinine Clearance Estimated 39 mL/min (50-200); Estimated Glomerular Filt Rate 42 ml/min (>60); GFR (African American) 51 ML/MIN (>60); Glucose 75 mg/dl (74-100); Sodium 141 mmol/L (136-145)
--- NOTE | 2020-09-11 07:30 | XR_ITS ---
PROCEDURE: XR CHEST PORTABLE CLINICAL HISTORY: sob Shortness of air, pneumonia COMPARISON: CR XR CHEST PORTABLE from 09/05/2020 CR XR CHEST PORTABLE from 09/10/2020 FINDINGS: The cardiomediastinal silhouette and pulmonary vascularity are within normal limits. Opacification is present involving the right upper and right lower lobe consistent with right-sided pneumonia which is worse compared to the previous exam now with involvement of the right lower lobe. There may also be a small right effusion. Left lung is clear. No acute bony abnormalities. IMPRESSION: Right upper and right lower lobe pneumonia which is worse with possible small right effusion Dictated by: Mati Caro MD 09/11/2020 08:36 Mati Caro MD in [place] 09/11/2020 08:36
--- NOTE | 2020-09-11 07:34 | HMH.PHAVTE ---
[facility] Pharmacy VTE Monitoring - Patient Demographics Admission date: 09/10/20 Report Date: 09/11/20 Time: 07:34 Allergies/Adverse Reactions: Patient Allergies amoxicillin [From Augmentin] Allergy (Severe, Verified 09/11/20 00:22) Rash ciprofloxacin Allergy (Severe, Verified 09/11/20 00:22) Rash clavulanic acid [From Augmentin] Allergy (Severe, Verified 09/11/20 00:22) Rash shellfish derived Allergy (Severe, Verified 09/11/20 00:22) Anaphylaxis Height: 1.6 m Weight: 129.727 kg Patient Problems: Current Active Problems Obesities, morbid (Acute) Chronic renal insufficiency (Acute) CHF exacerbation (Acute) HCAP (healthcare-associated pneumonia) (Acute) Respiratory failure with hypercapnia (Acute) - VTE Risk Labs: VTE Related Lab Results Hgb 12.6 g/dL (12.2-16.2) 09/11/20 06:12 Hct 41.5 % (37.0-47.0) 09/11/20 06:12 Plt Count 162 K/mm3 (142-424) 09/11/20 06:12 BUN 50 mg/dl (7-17) H 09/11/20 06:12 Creatinine 1.30 mg/dl (0.52-1.04) H D 09/11/20 06:12 Estimated Creat Clear 39 mL/min (50-200) 09/11/20 06:12 Was VTE Risk Assessment Performed: Yes VTE Score: 9 VTE Risk Level: Moderate Risk Clinical Trial Participant: No - Prophylaxis VTE Prophylaxis Ordered?: Yes Types of VTE Prophylaxis: IPCS Knee High, Pharmacological Pharmacologic Type: Enoxaparin
--- NOTE | 2020-09-11 08:36 | HMH.ACPN2 ---
Internal Medicine - PN: Subj *Date: 09/11/20 *Time: 12:34 Interval history: 60-year-old female patient resting quietly in bed with BiPAP on settings are 21/8 60%, Saturations 96%. This morning she did have some elevated heart rate up to 140 bpm we will consult cardiology, she denies chest pain during episode. Exam Vital signs and Labs for Last 24 Hours: Temp Pulse Resp BP Pulse Ox 98.6 F 89 21 126/73 95 09/11/20 08:00 09/11/20 08:00 09/11/20 08:00 09/11/20 08:00 09/11/20 08:00 Laboratory Results - last 24 hr 09/10/20 12:50: WBC 9.4, RBC 4.24, Hgb 12.8, Hct 42.8, MCV 101.0 H, MCH 30.2, MCHC 29.9 L, RDW 15.1, Plt Count 171, MPV 8.4, Neut % (Auto) 86.1 H, Lymph % (Auto) 8.8 L, [place] % (Auto) 4.5, Eos % (Auto) 0.4, Baso % (Auto) 0.2, Neut # (Auto) 8.1 H, Lymph # (Auto) 0.8, [place] # (Auto) 0.4, Eos # (Auto) 0.0, Baso # (Auto) 0.0, Total Counted 100, Neutrophils % (Manual) 87 H, Lymphocytes % (Manual) 9 L, Monocytes % (Manual) 4, Platelet Estimate Normal, Macrocytosis 1+ 09/10/20 12:50: Sodium 141, Potassium 5.3 H, Chloride 93 L, Carbon Dioxide 47 H*, Anion Gap 6.3, BUN 63 H, Creatinine 1.70 H, Estimated Creat Clear 29, Estimated GFR 31 L, Est GFR ( Amer) 37 L, Glucose 117 H, Calcium 9.0, Total Bilirubin 0.5, AST 40 H, ALT 91 H, Alkaline Phosphatase 68, Troponin I 0.02, Total Protein 6.4, Albumin 3.7, Globulin 2.7, Albumin/Globulin Ratio 1.4 09/10/20 12:50: Lactate 0.8 09/10/20 12:50: NT-Pro-B Natriuret Pep [id number] H 09/10/20 13:01: Specimen Source Right radial, O2 % 50, ABG pH 7.22 L*, ABG pCO2 104.1 H, ABG pO2 72.7 L, ABG HCO3 41.7 H, ABG Total CO2 44.9 H, ABG O2 Saturation 94, ABG Base Excess 14.0 H, Mati Test Acceptable, PEEP 8 09/10/20 16:15: Troponin I 0.02 09/10/20 18:00: Specimen Source Right radial, O2 % 50, ABG pH 7.25 L, ABG pCO2 125.5 H, ABG pO2 82.4, ABG HCO3 54.3 H, ABG Total CO2 58.2 H, ABG O2 Saturation 96, ABG Base Excess 27.1 H, Mati Test Acceptable, PEEP 18/8 09/10/20 19:11: Troponin I 0.02 09/11/20 06:12: WBC 8.0, RBC 4.17 L, Hgb 12.6, Hct 41.5, MCV 99.5 H, MCH 30.2, MCHC 30.4 L, RDW 15.3, Plt Count 162, MPV 7.5, Neut % (Auto) 78.3, Lymph % (Auto) 15.9, [place] % (Auto) 4.6, Eos % (Auto) 0.9, Baso % (Auto) 0.3, Neut # (Auto) 6.2, Lymph # (Auto) 1.3, [place] # (Auto) 0.4, Eos # (Auto) 0.1, Baso # (Auto) 0.0 09/11/20 06:12: Sodium 141, Potassium 5.0, Chloride 92 L, Carbon Dioxide 38 H, Anion Gap 16.0 H, BUN 50 H, Creatinine 1.30 H D, Estimated Creat Clear 39, Estimated GFR 42 L, Est GFR ( Amer) 51 L D, Glucose 75 D, Calcium 9.1 I & O for Last 24 hours: Intake & Output 09/08/20 09/09/20 09/10/20 09/11/20 23:59 23:59 23:59 23:59 Intake Total 120 / 120 Output Total 1200 / 1200 1200 / 1200 Balance -1200 / -1200 -1080 / -1080 Weight 286 lb Microbiology Reports for the Last 24 Hours: Microbiology 09/10/20 12:50 Nasopharyngeal Coronavirus COVID-19 PCR - Final - Constitutional mild distress, morbidly obese - *Routine HEENT Exam Head: Present: normocephalic Eye: Present: EOMI ENT: Present: mucous membranes moist - *Routine Neck Exam Present: trachea midline. Absent: tracheal deviation - *Routine Respiratory Exam Present: decreased breath sounds, crackles - *Routine Cardiovascular Exam Present: RRR, murmur - *Routine Abdominal Exam Present: soft, normoactive bowel sounds, obese, hernia. Absent: tenderness - *Routine Extremities Exam Present: edema, full ROM, pulses intact. Absent: cyanosis, calf tenderness - *Routine Skin Exam Present: dry, warm, wounds. Absent: cyanosis, erythema Comments: Abdomen with old healing wound - *Routine Neurological Exam Present: alert, oriented X3. Absent: altered mental status - Routine Psychiatric Exam Present: normal affect, normal thought process. Absent: auditory hallucinations, visual hallucinations Assessment and Plan (1) HCAP (healthcare-associated pneumonia) Status: Acute Category: Medical Code(s): J18.9 - P
--- NOTE | 2020-09-11 09:29 | HMH.PHACONS ---
- Pharmacy Consult Date: 09/11/20 Time: 09:29 Referring provider: DR. SCHWAB Reason for Consult:: GENTAMICIN DOSING Allergies and ADEs:: Allergies Allergy/AdvReac Type Severity Reaction Status Date / Time amoxicillin [From Augmentin] Allergy Severe Rash Verified 09/11/20 00:22 ciprofloxacin Allergy Severe Rash Verified 09/11/20 00:22 clavulanic acid Allergy Severe Rash Verified 09/11/20 00:22 [From Augmentin] shellfish derived Allergy Severe Anaphylaxis Verified 09/11/20 00:22 Home Medications:: Home Medications Medication Instructions Recorded Confirmed Type buspirone 15 mg tablet 15 mg PO TID tab 10/05/18 09/10/20 History risperidone 1 mg tablet 1 mg PO HS 01/14/19 09/10/20 History hydroxyzine HCl 50 mg tablet 50 mg PO TIDP PRN tab 02/21/20 09/10/20 History ciclopirox 8 % topical solution 1 applic TOPICAL DAILY 60 Days 03/22/20 09/10/20 Rx #6.6 ml fluticasone propionate 50 1 spray INTRANASAL DAILY PRN 03/22/20 09/10/20 History mcg/actuation nasal spray,suspension ipratropium 0.5 mg-albuterol 3 mg 3 ml INHALATION Q8H PRN #180 ml 06/01/20 09/10/20 Rx (2.5 mg base)/3 mL nebulization soln Fluticasone/Vilanterol [Breo 1 inh PO DAILY 09/05/20 09/10/20 History Ellipta 200-25 Mcg INH] Nystatin [Nystatin Cr 100,000 1 applic TOPICAL BID 09/05/20 09/10/20 History Units/GM 30GM] Pantoprazole Sodium 40 mg PO DAILY 09/05/20 09/10/20 History Albuterol Sulfate [Albuterol 1 puff IH Q6HP PRN 09/06/20 09/10/20 History Sulfate Hfa] Cyclobenzaprine HCl 10 mg PO HSP PRN 09/06/20 09/10/20 History [Cyclobenzaprine 10mg Tab*] Escitalopram Oxalate [Lexapro] 20 mg PO DAILY 09/06/20 09/10/20 History Gabapentin 800 mg PO TID 09/06/20 09/10/20 History Hydrocodone/Acetaminophen 1 each PO DAILYP PRN 09/06/20 09/10/20 History [Hydrocodone-Acetamin 5-325 mg] Metoprolol Succinate [Metoprolol 100 mg PO DAILY 09/06/20 09/10/20 History Succinate 100mg Tablet*] Furosemide [Lasix 40mg tab] 40 mg PO BID 09/10/20 09/10/20 History Potassium Chloride 20 meq PO DAILY 09/10/20 09/10/20 History Height: 1.6 m Weight: 129.727 kg Laboratory Results:: Laboratory Results - last 24 hr 09/10/20 12:50: WBC 9.4, RBC 4.24, Hgb 12.8, Hct 42.8, MCV 101.0 H, MCH 30.2, MCHC 29.9 L, RDW 15.1, Plt Count 171, MPV 8.4, Neut % (Auto) 86.1 H, Lymph % (Auto) 8.8 L, [place] % (Auto) 4.5, Eos % (Auto) 0.4, Baso % (Auto) 0.2, Neut # (Auto) 8.1 H, Lymph # (Auto) 0.8, [place] # (Auto) 0.4, Eos # (Auto) 0.0, Baso # (Auto) 0.0, Total Counted 100, Neutrophils % (Manual) 87 H, Lymphocytes % (Manual) 9 L, Monocytes % (Manual) 4, Platelet Estimate Normal, Macrocytosis 1+ 09/10/20 12:50: Sodium 141, Potassium 5.3 H, Chloride 93 L, Carbon Dioxide 47 H*, Anion Gap 6.3, BUN 63 H, Creatinine 1.70 H, Estimated Creat Clear 29, Estimated GFR 31 L, Est GFR ( Amer) 37 L, Glucose 117 H, Calcium 9.0, Total Bilirubin 0.5, AST 40 H, ALT 91 H, Alkaline Phosphatase 68, Troponin I 0.02, Total Protein 6.4, Albumin 3.7, Globulin 2.7, Albumin/Globulin Ratio 1.4 09/10/20 12:50: Lactate 0.8 09/10/20 12:50: NT-Pro-B Natriuret Pep [id number] H 09/10/20 13:01: Specimen Source Right radial, O2 % 50, ABG pH 7.22 L*, ABG pCO2 104.1 H, ABG pO2 72.7 L, ABG HCO3 41.7 H, ABG Total CO2 44.9 H, ABG O2 Saturation 94, ABG Base Excess 14.0 H, Mati Test Acceptable, PEEP 8 09/10/20 16:15: Troponin I 0.02 09/10/20 18:00: Specimen Source Right radial, O2 % 50, ABG pH 7.25 L, ABG pCO2 125.5 H, ABG pO2 82.4, ABG HCO3 54.3 H, ABG Total CO2 58.2 H, ABG O2 Saturation 96, ABG Base Excess 27.1 H, Mati Test Acceptable, PEEP 18/8 09/10/20 19:11: Troponin I 0.02 09/11/20 06:12: WBC 8.0, RBC 4.17 L, Hgb 12.6, Hct 41.5, MCV 99.5 H, MCH 30.2, MCHC 30.4 L, RDW 15.3, Plt Count 162, MPV 7.5, Neut % (Auto) 78.3, Lymph % (Auto) 15.9, [place] % (Auto) 4.6, Eos % (Auto) 0.9, Baso % (Auto) 0.3, Neut # (Auto) 6.2, Lymph # (Auto) 1.3, [place] # (Auto) 0.4, Eos # (Auto) 0.1, Baso # (Auto) 0.0 09/11/20 06:12: Sodium 141, [place]
--- NOTE | 2020-09-11 09:33 | HMH.PULMCON ---
*Admission Date: 09/10/20 *Reason for consult:: Acute on chronic hypoxic and hypercarbic respiratory failure *History of present illness: Ms. Lund is a 60-year-old female smoker with a history of COPD on oxygen therapy at 2.5 L, history of PTSD, JOSIE, obesity recently discharged last week from the hospital when she was admitted for COPD and CHF exacerbation, treated with Lasix along with ceftriaxone azithromycin presented to the EMS yesterday with hypoxic and hypercarbic respiratory failure. Patient on further questioning admits noncompliance with her inhalers and nebulizer since discharge. She also complains of worsening productive phlegm. It is also not clear whether patient has been using her diuretic medication since recent discharge [facility] History Medical History: Reports:: Anxiety, Congestive Heart Failure, Chronic Obstructive Pulmonary Disease (COPD), Depression, Gastroesophageal Reflux Disease(GERD), Hypertension, Lung Disease, Renal Insufficiency Denies:: Cancer, Diabetes Mellitus Type 1, Diabetes Mellitus Type 2, MRSA *Have you ever received a pneumonia vaccine?: No *Have you received a flu vaccine this season?: No Other Medical History: Reports: Arthritis, Fibromyalgia, Sinus Problems, Other Laterality Cases: Right: Total Knee Replacement Other Surgeries: Yes: Appendectomy, Cholecystectomy, Hernia Repair, Other Amputation: No Fractures: Yes - *Social History Smoking Status: Current some day smoker Tobacco Type: cigarettes # Packs/Day (cigarettes): 1 #Yrs smoked (if former smoker): 30 Alcohol Intake: never Substance Use Type: marijuana Last Used Substance: unknown *Occupational Status:: disabled Housing: apartment Household Members: none *Travel in the last 8 weeks: None - Psychiatric History Pschychiatric History:: Reports:: Anxiety, Depression Family Hx:: Asthma, Cancer, Coronary Artery Disease, Diabetes, Heart Attack, Hyperlipidemia, Hypertension ROS - Cons Reports body ache(s), Reports chills - ENT Denies difficulty swallowing - Card Reports shortness of breath, Reports shortness of breath with activity, Reports leg swelling, Reports shortness of breath when lying down - Resp Respiratory: Reports dyspnea on exertion, Reports excessive phlegm production, Denies pain on inspiration, Reports cough with sputum production, Denies pain with breathing - GI Gastrointestingal: Reports: system reviewed and no additional complaints, except as docu - [place] Musculoskeletal: Reports back pain - Psych Reports abnormal sleep pattern Meds Home Medications Medication Instructions Recorded Confirmed Type buspirone 15 mg tablet 15 mg PO TID tab 10/05/18 09/10/20 History risperidone 1 mg tablet 1 mg PO HS 01/14/19 09/10/20 History hydroxyzine HCl 50 mg tablet 50 mg PO TIDP PRN tab 02/21/20 09/10/20 History ciclopirox 8 % topical solution 1 applic TOPICAL DAILY 60 Days 03/22/20 09/10/20 Rx #6.6 ml fluticasone propionate 50 1 spray INTRANASAL DAILY PRN 03/22/20 09/10/20 History mcg/actuation nasal spray,suspension ipratropium 0.5 mg-albuterol 3 mg 3 ml INHALATION Q8H PRN #180 ml 06/01/20 09/10/20 Rx (2.5 mg base)/3 mL nebulization soln Fluticasone/Vilanterol [Breo 1 inh PO DAILY 09/05/20 09/10/20 History Ellipta 200-25 Mcg INH] Nystatin [Nystatin Cr 100,000 1 applic TOPICAL BID 09/05/20 09/10/20 History Units/GM 30GM] Pantoprazole Sodium 40 mg PO DAILY 09/05/20 09/10/20 History Albuterol Sulfate [Albuterol 1 puff IH Q6HP PRN 09/06/20 09/10/20 History Sulfate Hfa] Cyclobenzaprine HCl 10 mg PO HSP PRN 09/06/20 09/10/20 History [Cyclobenzaprine 10mg Tab*] Escitalopram Oxalate [Lexapro] 20 mg PO DAILY 09/06/20 09/10/20 History Gabapentin 800 mg PO TID 09/06/20 09/10/20 History Hydrocodone/Acetaminophen 1 each PO DAILYP PRN 09/06/20 09/10/20 History [Hydrocodone-Acetamin 5-325 mg] Metoprolol Succinate [Metoprolol 100 mg PO DAILY 09/06/20 09/10/20 History Succinate 100mg Tablet*] F
--- NOTE | 2020-09-11 10:21 | HMH.CNCARD ---
History of Present Illness Consult date: 09/11/20 Requesting physician: Sheng Krueger Consult reason: shortness of breath Chief complaint: shortness of breath History of present illness: 60-year-old female presented to [facility] ED with increased shortness of breath. Patient had recently been discharged from this facility less than 2 weeks ago due to congestive heart failure. Patient states for the last week she has been feeling this increased shortness of breath and swelling of the lower extremities. Patient states that due to the swelling her legs continue to ache. Patient is noncompliant with her medication regimen. Patient stated she had one episode of chest pain which resolved within a few seconds. Patient states she is unable to walk less than 50 feet without becoming short of breath. Patient is noted to be on BiPAP. Patient is on BiPAP at home. Chest x-ray revealed patient with right upper and right lower lobe pneumonia with the worst being on the right. She was then started on appropriate antibiotics for the pneumonia managed by PCP and pulmonology. Patient does complain of palpitations. While assessing this patient, patient's heart rate was in 140s to 150s in sinus tach. After a few seconds heart rate did decrease to 80 bpm. Patient states for the last few weeks she has noticed that her heart rate has been going high. Echo cardiogram was performed on 09/06/2020. Echocardiogram revealed EF 55% grade 1 diastolic dysfunction, moderate enlarged RV and trace of MR and TR noted. Creatinine 1.30 with a BUN of 50 noted BNP elevated over 18,000. This is an indication of congestive heart failure. Patient does have chronic renal disease. Patient states that she does consume 1 to 2 L of soda a day. Discussed decreasing soda consumption. Discussed fluid restriction. Discussed plan of care with Dr. Abdullahi. Will schedule patient for a loop recorder today due to tachycardia and palpitations. Discussed benefits and risk of the procedure with the patient. Patient verbalized understanding and is agreeable to procedure. Due to elevated BNP, will prescribe Lasix 40 mg IV push daily. Will order BMP in a.m. Thank you for allowing cardiology to participate in the care of this patient. [facility] History I have reviewed the patient's past medical history: Yes Medical History: Reports:: Anxiety, Congestive Heart Failure, Chronic Obstructive Pulmonary Disease (COPD), Depression, Gastroesophageal Reflux Disease(GERD), Hypertension, Lung Disease, Renal Insufficiency Denies:: Cancer, Diabetes Mellitus Type 1, Diabetes Mellitus Type 2, MRSA *Have you ever received a pneumonia vaccine?: No *Have you received a flu vaccine this season?: No Other Medical History: Reports: Arthritis, Fibromyalgia, Sinus Problems, Other Laterality Cases: Right: Total Knee Replacement Other Surgeries: Yes: Appendectomy, Cholecystectomy, Hernia Repair, Other Amputation: No Fractures: Yes - *Social History Smoking Status: Current some day smoker Tobacco Type: cigarettes # Packs/Day (cigarettes): 1 #Yrs smoked (if former smoker): 30 Alcohol Intake: never Substance Use Type: marijuana Last Used Substance: unknown *Occupational Status:: disabled Housing: apartment Household Members: none *Travel in the last 8 weeks: None - Psychiatric History Pschychiatric History:: Reports:: Anxiety, Depression Family Hx:: Asthma, Cancer, Coronary Artery Disease, Diabetes, Heart Attack, Hyperlipidemia, Hypertension Meds Home Medications Medication Instructions Recorded Confirmed Type buspirone 15 mg tablet 15 mg PO TID tab 10/05/18 09/10/20 History risperidone 1 mg tablet 1 mg PO HS 01/14/19 09/10/20 History hydroxyzine HCl 50 mg tablet 50 mg PO TIDP PRN tab 02/21/20 09/10/20 History ciclopirox 8 % topical solution 1 applic TOPICAL DAILY 60 Days 03/22/20 09/10/20 Rx #6.6 ml fluticasone propionate 50 1 spray INTRANASAL DAILY PRN 03/22/20 09/10/20 History mcg/actuation nasal
--- NOTE | 2020-09-11 10:43 | P.CONPHA_ITS ---
- Pharmacy Consult Date: 09/11/20 Time: 10:43 Referring provider: DR. JIMENEZ Reason for Consult:: VANCOMYCIN DOSING Allergies and ADEs:: Allergies Allergy/AdvReac Type Severity Reaction Status Date / Time amoxicillin [From Augmentin] Allergy Severe Rash Verified 09/11/20 00:22 ciprofloxacin Allergy Severe Rash Verified 09/11/20 00:22 clavulanic acid Allergy Severe Rash Verified 09/11/20 00:22 [From Augmentin] shellfish derived Allergy Severe Anaphylaxis Verified 09/11/20 00:22 Home Medications:: Home Medications Medication Instructions Recorded Confirmed Type buspirone 15 mg tablet 15 mg PO TID tab 10/05/18 09/10/20 History risperidone 1 mg tablet 1 mg PO HS 01/14/19 09/10/20 History hydroxyzine HCl 50 mg tablet 50 mg PO TIDP PRN tab 02/21/20 09/10/20 History ciclopirox 8 % topical solution 1 applic TOPICAL DAILY 60 Days 03/22/20 09/10/20 Rx #6.6 ml fluticasone propionate 50 1 spray INTRANASAL DAILY PRN 03/22/20 09/10/20 History mcg/actuation nasal spray,suspension ipratropium 0.5 mg-albuterol 3 mg 3 ml INHALATION Q8H PRN #180 ml 06/01/20 09/10/20 Rx (2.5 mg base)/3 mL nebulization soln Fluticasone/Vilanterol [Breo 1 inh PO DAILY 09/05/20 09/10/20 History Ellipta 200-25 Mcg INH] Nystatin [Nystatin Cr 100,000 1 applic TOPICAL BID 09/05/20 09/10/20 History Units/GM 30GM] Pantoprazole Sodium 40 mg PO DAILY 09/05/20 09/10/20 History Albuterol Sulfate [Albuterol 1 puff IH Q6HP PRN 09/06/20 09/10/20 History Sulfate Hfa] Cyclobenzaprine HCl 10 mg PO HSP PRN 09/06/20 09/10/20 History [Cyclobenzaprine 10mg Tab*] Escitalopram Oxalate [Lexapro] 20 mg PO DAILY 09/06/20 09/10/20 History Gabapentin 800 mg PO TID 09/06/20 09/10/20 History Hydrocodone/Acetaminophen 1 each PO DAILYP PRN 09/06/20 09/10/20 History [Hydrocodone-Acetamin 5-325 mg] Metoprolol Succinate [Metoprolol 100 mg PO DAILY 09/06/20 09/10/20 History Succinate 100mg Tablet*] Furosemide [Lasix 40mg tab] 40 mg PO BID 09/10/20 09/10/20 History Potassium Chloride 20 meq PO DAILY 09/10/20 09/10/20 History Height: 1.6 m Weight: 129.727 kg Laboratory Results:: Laboratory Results - last 24 hr 09/10/20 12:50: WBC 9.4, RBC 4.24, Hgb 12.8, Hct 42.8, MCV 101.0 H, MCH 30.2, MCHC 29.9 L, RDW 15.1, Plt Count 171, MPV 8.4, Neut % (Auto) 86.1 H, Lymph % (Auto) 8.8 L, [place] % (Auto) 4.5, Eos % (Auto) 0.4, Baso % (Auto) 0.2, Neut # (Auto) 8.1 H, Lymph # (Auto) 0.8, [place] # (Auto) 0.4, Eos # (Auto) 0.0, Baso # (Auto) 0.0, Total Counted 100, Neutrophils % (Manual) 87 H, Lymphocytes % (Manual) 9 L, Monocytes % (Manual) 4, Platelet Estimate Normal, Macrocytosis 1+ 09/10/20 12:50: Sodium 141, Potassium 5.3 H, Chloride 93 L, Carbon Dioxide 47 H* , Anion Gap 6.3, BUN 63 H, Creatinine 1.70 H, Estimated Creat Clear 29, Estimated GFR 31 L, Est GFR ( Amer) 37 L, Glucose 117 H, Calcium 9.0, Total Bilirubin 0.5, AST 40 H, ALT 91 H, Alkaline Phosphatase 68, Troponin I 0.02, Total Protein 6.4, Albumin 3.7, Globulin 2.7, Albumin/Globulin Ratio 1.4 09/10/20 12:50: Lactate 0.8 09/10/20 12:50: NT-Pro-B Natriuret Pep [id number] H 09/10/20 13:01: Specimen Source Right radial, O2 % 50, ABG pH 7.22 L*, ABG pCO2 104.1 H, ABG pO2 72.7 L, ABG HCO3 41.7 H, ABG Total CO2 44.9 H, ABG O2 Saturation 94, ABG Base Excess 14.0 H, Mati Test Acceptable, PEEP 8
--- NOTE | 2020-09-11 11:41 | PC.NURSE ---
PER DR. JIMENEZ ON MORNING ROUNDS HE IS OKAY W/ PT STAYING ON VENTURI MASK @ 50% LONG HER SAT IS 86% OR GREATER OR SHE BECOMES DISORIENTED AND WILL THEN BE PLACED BACK ON BIPAP, IF THIS IS TO HAPPEN AN ABG IS TO BE ORDERED.
--- NOTE | 2020-09-11 13:25 | P.PCN_ITS ---
[facility] Loop Recorder Date: 09/11/20 Time: 13:00 Procedure Performed:: Implantation of loop recorder Indication:: Tachybradycardia syndrome/sick sinus syndrome Technique:: Patient was brought to the cardiac Cereal [facility]pper. After informed consent obtained, 1% lidocaine with epinephrine was used to anesthetize the site along the left anterior aspect of the chest near the sternal border. Using the preformed scalpel, an incision was made and using the supplied preloaded apparatus, the loop recorder was placed subcutaneously without difficulty. Following the deployment of the loop recorder interrogation of the device was performed to ensure appropriate voltage was being detected (0.12 mV). Once this was verified, Steri-Strips were placed over the incision and the patient was prepped to discharge home. Patient tolerated the procedure well with minimal discomfort. Impression:: Successful implantation of loop recorder Serial Number:: 1,2,3 List[employer] Lux-DX serial #[id number] Plan:: Routine postop care
--- NOTE | 2020-09-11 13:45 | SUR.PHASEII ---
Loop recorder placed to left chest wall at bedside. No c/o pain, no problems with procedure, informed primary nurse of low grade temp and hypotension.
--- NOTE | 2020-09-11 16:02 | PC.NURSE ---
PT HAS BEEN AWAKE MOST OF SHIFT, SITTING UP IN BED. REMAINS ON 50% VENTURI MASK, SAT MAINTAINING 86%. CONT PULSE OX IN PLACE. WHEN EATING OR TRYING TO TALK ON PHONE PT WILL DESAT TO LOW 80'S BUT RECOVERS IN A FEW MINUTES. PT DID HAVE A EPISODE THIS AM IN WHICH HER HR INCREASED TO 140-150'S AND WAS SUSTAINING FOR ABOUT 5 MINUTES, DR SCHWAB AND Sola GOODWIN WERE ON FLOOR @ THIS TIME. VS CHECKED, BEFORE EKG COULD BE OBTAINED PT'S DECREASED TO 80'S. ORDERS FOR CARDIOLOGY TO CONSULT ON PT. PT HAS SINCE THAT TIME NOT HAD ANOTHER EPISODE OF THIS. PER CARDIOLOGY LOOP RECORDER TO BE PLACED. Apolinar REYNOSO,RN AND Gayle GIRON PLACED LOOP RECORDER @ BEDSIDE, PT HAS DONE WELL SINCE THAT TIME. NSR ON TELY. ABDOMEN SOFT, LARGE, TENDER. WOUND TO MIDLINE OF ABDOMEN NOTED. Sola GOODWIN WAS NOTIFIED OF THIS AND VISUALIZED THIS AM. WOUND WAS IRRIGATED W/ NS, PAT DRY W/ STERILE 4X4 AND DRESSING IN PLACE. NO DRAINAGE PRESENT. PT WAS MEDICATED W/ PRN NORCO THIS SHIFT, W/ ADEQUATE RELIEF. CRISTINA CATH TO DRAIN @ BEDSIDE W/ CLEAR YELLOW URINE. REPORTS LAST BM WAS YESTERDAY. IS ABLE TO FEED HERSELF AND HAS CONSUMED MOST OF ALL OF HER TRAYS. IS CURRENTLY SITTING IN BED ON PHONE W/ FAMILY. NO NEEDS VOICED. CALL ROSY W/IN REACH.
[2020-09-11 17:13] LABS: Gentamicin,Random 11.6 ug/ml
[2020-09-11 23:47] LABS: Gentamicin,Random 7.1 ug/ml
[2020-09-12] VITALS (14 sets, daily range): BP systolic 102–127; BP diastolic 58–70; PULSE 80–93; RESP 18–21; TEMP 36.6–37.1; O2SAT 89–94; BMI 50.8
[2020-09-12 06:44] LABS: Basophils % 0.4 % (0.1-2.0); Eosinophils # 0.1 K/mm3 (0.0-0.4); Hematocrit 40.5 % (37.0-47.0); Hemoglobin 11.8 g/dL (12.2-16.2); Lymphocytes # 1.3 K/mm3 (0.7-4.5); Lymphocytes % 21.9 % (10-50); Mean Corpuscular HGB Conc 29.2 g/dL (31.8-35.4); Mean Corpuscular Hemoglobin 30.3 pg (27.0-31.2); Mean Corpuscular Volume 103.7 fl (81-99); Mean Platelet Volume 7.4 fl (7.4-10.4); Monocytes # 0.3 K/mm3 (0.1-1.0); Monocytes % 5.5 % (1.7-9.3); Neutrophils % 70.1 % (37.0-80.0); Platelet Count 186 K/mm3 (142-424); Red Blood Count 3.91 M/mm3 (4.20-5.40); Red Cell Distribution Width 15.5 % (11.5-17.5); White Blood Count 5.7 K/mm3 (4.8-10.8)
[2020-09-12 07:04] LABS: Blood Urea Nitrogen 47 mg/dl (7-17); Calcium 8.8 mg/dl (8.4-10.2); Chloride 93 mmol/L (98-107); Creatinine Clearance Estimated 36 mL/min (50-200); Estimated Glomerular Filt Rate 38 ml/min (>60); GFR (African American) 47 ML/MIN (>60); Glucose 100 mg/dl (74-100); Potassium 4.9 mmoL/L (3.5-5.1); Sodium 143 mmol/L (136-145)
--- NOTE | 2020-09-12 07:04 | PC.NURSE ---
pt states pain in back and legs x2 this shift. no acute changes. pt wore venti mask at 50% throughout night and o2 sat remain around 90%. pt refused bipap. pt is up to chair with assist. iv patent. call light in reach.vss. will continue to monitor
[2020-09-12 07:22] LABS: Anion Gap 1.9 mEq/L (5-15)
[2020-09-12 07:25] LABS: Carbon Dioxide 53 mmol/L (22.0-30.0)
[2020-09-12 09:13] LABS: ABG HCO3 49.2 mmhg (22.0-26.0); ABG PCO2 99.8 mmhg (35.0-45.0); ABG PH 7.31 mmol/L (7.35-7.45); ABG PO2 62.9 mmhg (80-100)
[2020-09-12 09:14] LABS: ABG Oxygen Saturation 93 % (90-100); ABG TCO2 52.3 mmhg (23-27); Oxygen 60 %; Tidal Volume 22/8; Vent Rate 22
[2020-09-12 09:15] LABS: Allen's Test ACCEPTABLE; Source R RADIAL
--- NOTE | 2020-09-12 09:15 | HMH.ACPN2 ---
Internal Medicine - PN: Subj *Date: 09/12/20 *Time: 13:24 Interval history: 60-year-old female patient sitting up in chair for her elevated BP, she reports she is feeling better today. Oxygenation saturation 93% on 15 L Venturi mask. Loop recorder was placed yesterday dressing is clean dry intact chest pain. She does complain of bilateral ankle ankle pain, denies any kind of injury. Exam Vital signs and Labs for Last 24 Hours: Temp Pulse Resp BP Pulse Ox 97.8 F 92 H 18 102/58 L 92 L 09/12/20 07:39 09/12/20 07:39 09/12/20 07:39 09/12/20 07:39 09/12/20 07:39 Laboratory Results - last 24 hr 09/10/20 19:53: Specimen Source R radial, O2 % 60, ABG pH 7.31 L, ABG pCO2 99.8 H, ABG pO2 62.9 L, ABG HCO3 49.2 H, ABG Total CO2 52.3 H, ABG O2 Saturation 93, ABG Base Excess 23.0 H, Mati Test Acceptable, Vent Rate 22, Tidal Volume 22/8 09/11/20 16:18: Random Gentamicin 11.6 09/11/20 23:25: Random Gentamicin 7.1 09/12/20 06:13: Sodium 143, Potassium 4.9, Chloride 93 L, Carbon Dioxide 53 H* D, Anion Gap 1.9 L, BUN 47 H, Creatinine 1.40 H, Estimated Creat Clear 36, Estimated GFR 38 L, Est GFR ( Amer) 47 L, Glucose 100, Calcium 8.8 09/12/20 06:13: WBC 5.7 D, RBC 3.91 L, Hgb 11.8 L, Hct 40.5, MCV 103.7 H, MCH 30.3, MCHC 29.2 L, RDW 15.5, Plt Count 186, MPV 7.4, Neut % (Auto) 70.1, Lymph % (Auto) 21.9, [place] % (Auto) 5.5, Eos % (Auto) 2.0, Baso % (Auto) 0.4, Neut # (Auto) 4.0, Lymph # (Auto) 1.3, [place] # (Auto) 0.3, Eos # (Auto) 0.1, Baso # (Auto) 0.0 I & O for Last 24 hours: Intake & Output 09/09/20 09/10/20 09/11/20 09/12/20 23:59 23:59 23:59 23:59 Intake Total 360 / 360 360 / 360 Output Total 1200 / 1200 3100 / 3100 650 / 650 Balance -1200 / -1200 -2740 / -2740 -290 / -290 Weight 286 lb Microbiology Reports for the Last 24 Hours: Microbiology 09/11/20 10:00 Sputum - Expectorated Sputum Gram Stain - Final - Constitutional no acute distress - *Routine HEENT Exam Head: Present: normocephalic Eye: Present: EOMI ENT: Present: mucous membranes moist - *Routine Neck Exam Present: trachea midline. Absent: tracheal deviation - *Routine Respiratory Exam Present: rhonchi, wheezes. Absent: accessory muscle use - *Routine Cardiovascular Exam Present: RRR - *Routine Abdominal Exam Present: soft, normoactive bowel sounds, obese. Absent: tenderness, firm - *Routine Extremities Exam Present: edema, full ROM, pulses intact. Absent: cyanosis, calf tenderness - *Routine Skin Exam Present: dry, warm, wounds. Absent: intact, erythema Comments: Healing area on Abd - *Routine Neurological Exam Present: alert, oriented X3. Absent: motor deficit, pronator drift - Routine Psychiatric Exam Present: normal affect, normal thought process. Absent: auditory hallucinations, visual hallucinations Assessment and Plan (1) HCAP (healthcare-associated pneumonia) Status: Acute Category: Medical Code(s): J18.9 - Pneumonia, unspecified organism (2) Respiratory failure with hypercapnia Status: Acute Qualifiers: Chronicity: acute on chronic Qualified Code(s): J96.22 - Acute and chronic respiratory failure with hypercapnia Category: Medical Code(s): J96.92 - Respiratory failure, unspecified with hypercapnia (3) Chronic renal insufficiency Status: Acute Qualifiers: Chronic kidney disease stage: unspecified stage Qualified Code(s): N18.9 - Chronic kidney disease, unspecified Category: Medical Code(s): N18.9 - Chronic kidney disease, unspecified (4) Obesities, morbid Status: Acute Category: Medical Code(s): E66.01 - Morbid (severe) obesity due to excess calories (5) Pickwickian syndrome Status: Acute Category: Medical Code(s): E66.2 - Morbid (severe) obesity with alveolar hypoventilation (6) COPD (chronic obstructive pulmonary disease) Status: Acute Category: Medical Code(s): J44.9 - Chronic obstructive pulmonary disease, unspecified - A
--- NOTE | 2020-09-12 09:35 | HMH.PULMPN ---
Internal Medicine - PN: Subj *Date: 09/12/20 *Time: 09:35 Interval history: No acute respiratory vents overnight Exam - Constitutional Constitutional:: Present: no acute distress, comfortable - HENMT Exam HENMT: Present: atraumatic - Eye Exam Eyes:: Present: eyelids normal - Neck Exam Neck:: Present: thyroid normal - Respiratory Exam Respiratory:: Present: able to speak in complete sentences, no respiratory distress, normal respiratory effort, wheezing - Cardiovascular Exam Cardiac:: Present: S1, S2 - GI Exam GI:: Present: soft, obese - Skin Exam Skin: Present: warm, no rash - Neurological Exam Neurological: Present: alert, awake, normal cognition - Extremities Exam Extremities: Present: no cyanosis, no clubbing, edema - Psychiatric Exam Psychiatric: Present: normal affect Assessment and Plan (1) HCAP (healthcare-associated pneumonia) Status: Acute Category: Medical Code(s): J18.9 - Pneumonia, unspecified organism (2) Respiratory failure with hypercapnia Status: Acute Qualifiers: Chronicity: acute on chronic Qualified Code(s): J96.22 - Acute and chronic respiratory failure with hypercapnia Category: Medical Code(s): J96.92 - Respiratory failure, unspecified with hypercapnia (3) Chronic renal insufficiency Status: Acute Qualifiers: Chronic kidney disease stage: unspecified stage Qualified Code(s): N18.9 - Chronic kidney disease, unspecified Category: Medical Code(s): N18.9 - Chronic kidney disease, unspecified (4) Obesities, morbid Status: Acute Category: Medical Code(s): E66.01 - Morbid (severe) obesity due to excess calories (5) Pickwickian syndrome Status: Acute Category: Medical Code(s): E66.2 - Morbid (severe) obesity with alveolar hypoventilation (6) COPD (chronic obstructive pulmonary disease) Status: Acute Category: Medical Code(s): J44.9 - Chronic obstructive pulmonary disease, unspecified - Assessment and plan all Dx Assessment and Plan for all problems:: #Acute on chronic hypoxic and hypercarbic respiratory failure: #Healthcare associated pneumonia: #Pleural effusion: 60-year-old smoker COPD noncompliant with her medications recently discharged from the hospital after which she was treated with ceftriaxone dexamethasone for COPD exacerbation presented with worsening hypoxic and hypercarbic respiratory failure. Patient has been noncompliant with her treatments Chest x-ray showed prominent right lungpulmonary infiltrate along with right-sided pleural effusion. No evidence of leukocytosis. ABG showed hypoxic hypercarbic respiratory failure with respiratory acidosis with a pH of 7.25 and a PCO2 of 125.5 on admission. Patient also have diastolic heart failure with a EF of 55%. Interval update: Patient respiratory status improved, on Ventimask this morning 50% saturating 95 to 96% decreased to 40%. Plan: - Continue Vanc, cefepime and azithromycin - F/U Sputum culture and nasal MRSA screen - DuoNebs every 6 hours scheduled along with budesonide every 12 schedule -Patient cannot tolerate the BiPAP -patient would benefit from trilogy noninvasive ventilator device as she will benefit from volume ventilation to treat her hypercarbic respiratory failure and she did not tolerated higher pressures from BiPAP during this hospital stay. Settings -target tidal volume 8 mL/kg ideal body weight, PS minimum of 8 and PS max of 20. EPAP maximum of 8 and EPAP minimum of 6. We will continue the trilogy treatment for the next 1 to 2 months and will schedule an appointment for sleep clinic to evaluate for possible sleep apnea -Volume optimization diuresis as per primary team and cardiology. #Thank you for involving pulmonary in this patient care. We will continue to follow.
--- NOTE | 2020-09-12 09:57 | HMH.PHACONS ---
- Pharmacy Consult Date: 09/12/20 Time: 09:57 Referring provider: DR. SCHWAB Reason for Consult:: GENTAMICIN LEVELS Allergies and ADEs:: Allergies Allergy/AdvReac Type Severity Reaction Status Date / Time amoxicillin [From Augmentin] Allergy Severe Rash Verified 09/11/20 00:22 ciprofloxacin Allergy Severe Rash Verified 09/11/20 00:22 clavulanic acid Allergy Severe Rash Verified 09/11/20 00:22 [From Augmentin] shellfish derived Allergy Severe Anaphylaxis Verified 09/11/20 00:22 Home Medications:: Home Medications Medication Instructions Recorded Confirmed Type buspirone 15 mg tablet 15 mg PO TID tab 10/05/18 09/10/20 History risperidone 1 mg tablet 1 mg PO HS 01/14/19 09/10/20 History hydroxyzine HCl 50 mg tablet 50 mg PO TIDP PRN tab 02/21/20 09/10/20 History ciclopirox 8 % topical solution 1 applic TOPICAL DAILY 60 Days 03/22/20 09/10/20 Rx #6.6 ml fluticasone propionate 50 1 spray INTRANASAL DAILY PRN 03/22/20 09/10/20 History mcg/actuation nasal spray,suspension ipratropium 0.5 mg-albuterol 3 mg 3 ml INHALATION Q8H PRN #180 ml 06/01/20 09/10/20 Rx (2.5 mg base)/3 mL nebulization soln Fluticasone/Vilanterol [Breo 1 inh PO DAILY 09/05/20 09/10/20 History Ellipta 200-25 Mcg INH] Nystatin [Nystatin Cr 100,000 1 applic TOPICAL BID 09/05/20 09/10/20 History Units/GM 30GM] Pantoprazole Sodium 40 mg PO DAILY 09/05/20 09/10/20 History Albuterol Sulfate [Albuterol 1 puff IH Q6HP PRN 09/06/20 09/10/20 History Sulfate Hfa] Cyclobenzaprine HCl 10 mg PO HSP PRN 09/06/20 09/10/20 History [Cyclobenzaprine 10mg Tab*] Escitalopram Oxalate [Lexapro] 20 mg PO DAILY 09/06/20 09/10/20 History Gabapentin 800 mg PO TID 09/06/20 09/10/20 History Hydrocodone/Acetaminophen 1 each PO DAILYP PRN 09/06/20 09/10/20 History [Hydrocodone-Acetamin 5-325 mg] Metoprolol Succinate [Metoprolol 100 mg PO DAILY 09/06/20 09/10/20 History Succinate 100mg Tablet*] Furosemide [Lasix 40mg tab] 40 mg PO BID 09/10/20 09/10/20 History Potassium Chloride 20 meq PO DAILY 09/10/20 09/10/20 History Height: 1.6 m Weight: 129.727 kg Laboratory Results:: Laboratory Results - last 24 hr 09/10/20 19:53: Specimen Source R radial, O2 % 60, ABG pH 7.31 L, ABG pCO2 99.8 H, ABG pO2 62.9 L, ABG HCO3 49.2 H, ABG Total CO2 52.3 H, ABG O2 Saturation 93, ABG Base Excess 23.0 H, Mati Test Acceptable, Vent Rate 22, Tidal Volume 22/8 09/11/20 16:18: Random Gentamicin 11.6 09/11/20 23:25: Random Gentamicin 7.1 09/12/20 06:13: Sodium 143, Potassium 4.9, Chloride 93 L, Carbon Dioxide 53 H* D, Anion Gap 1.9 L, BUN 47 H, Creatinine 1.40 H, Estimated Creat Clear 36, Estimated GFR 38 L, Est GFR ( Amer) 47 L, Glucose 100, Calcium 8.8 09/12/20 06:13: WBC 5.7 D, RBC 3.91 L, Hgb 11.8 L, Hct 40.5, MCV 103.7 H, MCH 30.3, MCHC 29.2 L, RDW 15.5, Plt Count 186, MPV 7.4, Neut % (Auto) 70.1, Lymph % (Auto) 21.9, [place] % (Auto) 5.5, Eos % (Auto) 2.0, Baso % (Auto) 0.4, Neut # (Auto) 4.0, Lymph # (Auto) 1.3, [place] # (Auto) 0.3, Eos # (Auto) 0.1, Baso # (Auto) 0.0 Medical History: Reports:: Anxiety, Congestive Heart Failure, Chronic Obstructive Pulmonary Disease (COPD), Depression, Gastroesophageal Reflux Disease(GERD), Hypertension, Lung Disease, Renal Insufficiency Denies:: Cancer, Diabetes Mellitus Type 1, Diabetes Mellitus Type 2, MRSA Assessment and Plan (1) HCAP (healthcare-associated pneumonia) Status: Acute Category: Medical Code(s): J18.9 - Pneumonia, unspecified organism (2) Respiratory failure with hypercapnia Status: Acute Qualifiers: Chronicity: acute on chronic Qualified Code(s): J96.22 - Acute and chronic respiratory failure with hypercapnia Category: Medical Code(s): J96.92 - Respiratory failure, unspecified with hypercapnia (3) Chronic renal insufficiency Status: Acute Qualifiers: Chronic kidney disease stage: unspecified stage Qualified Code(s): N18.9 - Chronic kidney disease, unspecified
--- NOTE | 2020-09-12 10:38 | SW/DCPLANNER ---
Addendum entered by [facility] 09/14/20 10:04: Simi with [facility] has stated that services will begin tomorrow for this patient. Addendum entered by [facility] 09/14/20 09:15: Comfort with [facility] has stated they will deliver rolling walker to patients room this morning. Addendum entered by [facility] 09/14/20 08:42: CORRECTION: patient previously discharged home with [facility] and not [facility]. Patient is medically stable for discharge today. Patient information and order will be faxed to [facility]. Patient will discharge home with Trilogy machine from [facility] and I will also fax an order to [facility] for a rolling walker at the patients request. Patient currently has home O2 thru [facility]. I have provided this patient with information regarding [employer]. I will follow up with [facility] once patient information is reviewed. Addendum entered by [facility] 09/13/20 10:30: I have spoke with this patient regarding discharge plans. Patient is NOT interested in placement at time of discharge. Patient was previously set up with [facility] but was readmitted to [facility] before they could admit for services. Patient information/order will be faxed to [facility] at time of discharge. Patient has requested a rolling walker at time of discharge and this will be set up thru [facility]. I also provided this patient with information regarding [employer]. Discharge date is unknown at this time. Addendum entered by [facility] 09/12/20 13:08: Dc with [facility] has delivered Trilogy machine to this patient: I have also made Merissa Parker with [facility] aware. Original Note: Dr Goins has ordered a Trilogy machine for this patient. Patient information/order has been faxed to [facility] for Trilogy machine. I have spoke with Comfort/Dc from [facility] to confirm patient information/order has been reviewed and a Trilogy machine: Dc will deliver Trilogy to patients room today. I will follow up with [facility] prior to discharge.
--- NOTE | 2020-09-12 10:53 | HMH.PNCARD ---
Subjective Date: 09/12/20 Time: 10:00 Principal diagnosis: CHF Interval history: 60-year-old female presented to [facility] ED with increased shortness of breath 2 days ago. Patient states for the last week she has been feeling this increased shortness of breath and swelling of the lower extremities. Patient states that due to the swelling her legs continue to ache. Patient is noncompliant with her medication regimen. Patient stated she had one episode of chest pain which resolved within a few seconds. Patient states she is unable to walk less than 50 feet without becoming short of breath. Patient is noted to be on BiPAP but this am she is not willing to wear it. Pulse ox with drop into the 80's. Pulmonology and PCP is following. Chest x-ray revealed patient with right upper and right lower lobe pneumonia with the worst being on the right. Pt continues to be on appropriate antibiotics for the pneumonia managed by PCP and pulmonology. Patient does complain of palpitations. Loop recorder was placed yesterday due to palpitations and tachycardia. Loop recorder was placed on the left mid chest wall. Dressing is dry and intact. Instructed patient to have dressing remain on for 1 week until she follows up with cardiology in 1 week. Patient denies pain at the loop recorder site. Patient states for the last few weeks she has noticed that her heart rate has been going high. Echo cardiogram was performed on 09/06/2020. Echocardiogram revealed EF 55% grade 1 diastolic dysfunction, moderate enlarged RV and trace of MR and TR noted. Lasix 40 mg IV was initiated yesterday. We will continue the Lasix 40 mg IV once a day due to lower extremity edema and shortness of breath. Creatinine 1.50 with a BUN of 47. Patient does have chronic renal disease. Patient states that she does consume 1 to 2 L of soda a day. Discussed decreasing soda consumption. Discussed fluid restriction. Patient verbalized understanding. Discussed plan of care with Dr. Abdullahi and PCP. Management of the pneumonia deferred to PCP. Pulmonology has ordered a sleep study due to pneumonia and shortness of breath. We'll continue Lasix 40 mg IV push daily due to edema and shortness of breath. Please continue to monitor patient status. Notify cardiology of any changes in patient status. Exam Vital signs and Labs for Last 24 Hours: Temp Pulse Resp BP Pulse Ox 97.8 F 90 18 102/58 L 92 L 03/03/21 07:39 09/12/20 08:00 09/12/20 07:39 09/12/20 07:39 09/12/20 07:39 Laboratory Results - last 24 hr 09/10/20 19:53: Specimen Source R radial, O2 % 60, ABG pH 7.31 L, ABG pCO2 99.8 H, ABG pO2 62.9 L, ABG HCO3 49.2 H, ABG Total CO2 52.3 H, ABG O2 Saturation 93, ABG Base Excess 23.0 H, Mati Test Acceptable, Vent Rate 22, Tidal Volume 22/8 09/11/20 16:18: Random Gentamicin 11.6 09/11/20 23:25: Random Gentamicin 7.1 09/12/20 06:13: Sodium 143, Potassium 4.9, Chloride 93 L, Carbon Dioxide 53 H* D, Anion Gap 1.9 L, BUN 47 H, Creatinine 1.40 H, Estimated Creat Clear 36, Estimated GFR 38 L, Est GFR ( Amer) 47 L, Glucose 100, Calcium 8.8 09/12/20 06:13: WBC 5.7 D, RBC 3.91 L, Hgb 11.8 L, Hct 40.5, MCV 103.7 H, MCH 30.3, MCHC 29.2 L, RDW 15.5, Plt Count 186, MPV 7.4, Neut % (Auto) 70.1, Lymph % (Auto) 21.9, [place] % (Auto) 5.5, Eos % (Auto) 2.0, Baso % (Auto) 0.4, Neut # (Auto) 4.0, Lymph # (Auto) 1.3, [place] # (Auto) 0.3, Eos # (Auto) 0.1, Baso # (Auto) 0.0 I & O for Last 24 hours: Intake & Output 09/09/20 09/10/20 09/11/20 09/12/20 23:59 23:59 23:59 23:59 Intake Total 360 / 360 360 / 360 Output Total 1200 / 1200 3100 / 3100 2049 / 2049 Balance -1200 / -1200 -2740 / -2740 -1690 / -1690 Weight 286 lb Microbiology Reports for the Last 24 Hours: Microbiology 09/11/20 10:00 Sputum - Expectorated Sputum Gram Stain - Final - Constitutional mild distress, morbidly obese, cooperative - *Routine HEENT Exam Head: Present: normocephalic ENT: Present: mucous memb
--- NOTE | 2020-09-12 12:35 | PC.NURSE ---
late entry. was made aware of critical co2 from chemistry on morning rounds. no new orders
[2020-09-13] VITALS (14 sets, daily range): BP systolic 105–129; BP diastolic 42–73; PULSE 78–98; RESP 16–24; TEMP 36.7–37.3; O2SAT 90–95; BMI 51.7
--- NOTE | 2020-09-13 02:51 | PC.NURSE ---
no acute changes at this time. pt has slept with trilogy in use. pain/spasms reported at beginning of shift and prn med given. iv patent. espinoza draining clear light urine. call light in reach. vss. will continue to monitor pt condition.
[2020-09-13 06:55] LABS: Basophils % 0.5 % (0.1-2.0); Eosinophils # 0.2 K/mm3 (0.0-0.4); Eosinophils % 3.2 % (0.1-12.0); Hematocrit 39.8 % (37.0-47.0); Lymphocytes # 1.4 K/mm3 (0.7-4.5); Lymphocytes % 22.3 % (10-50); Mean Corpuscular Hemoglobin 30.6 pg (27.0-31.2); Mean Corpuscular Volume 101.8 fl (81-99); Mean Platelet Volume 7.8 fl (7.4-10.4); Monocytes # 0.4 K/mm3 (0.1-1.0); Neutrophils # 4.1 K/mm3 (1.8-7.8); Platelet Count 204 K/mm3 (142-424); Red Blood Count 3.91 M/mm3 (4.20-5.40); Red Cell Distribution Width 15.5 % (11.5-17.5); White Blood Count 6.1 K/mm3 (4.8-10.8)
--- NOTE | 2020-09-13 08:43 | P.PN_ITS ---
Internal Medicine - PN: Subj *Date: 09/13/20 *Time: 09:34 Interval history: No acute respiratory vents overnight Exam - Constitutional Constitutional:: Present: no acute distress, comfortable - HENMT Exam HENMT: Present: normocephalic, atraumatic - Eye Exam Eyes:: Present: eyelids normal - Neck Exam Neck:: Present: thyroid normal - Respiratory Exam Respiratory:: Present: able to speak in complete sentences, no respiratory distress, normal respiratory effort, crackles. Absent: wheezing - Cardiovascular Exam Cardiac:: Present: S1, S2 - GI Exam GI:: Present: soft, obese - Skin Exam Skin: Present: warm, no rash - Extremities Exam Extremities: Present: no cyanosis, no clubbing, edema - Psychiatric Exam Psychiatric: Present: normal affect Assessment and Plan (1) HCAP (healthcare-associated pneumonia) Status: Acute Category: Medical Code(s): J18.9 - Pneumonia, unspecified organism (2) Respiratory failure with hypercapnia Status: Acute Qualifiers: Qualified Code(s): J96.22 - Acute and chronic respiratory failure with hypercapnia Category: Medical Code(s): J96.92 - Respiratory failure, unspecified with hypercapnia (3) Chronic renal insufficiency Status: Acute Qualifiers: Qualified Code(s): N18.9 - Chronic kidney disease, unspecified Category: Medical Code(s): N18.9 - Chronic kidney disease, unspecified (4) Obesities, morbid Status: Acute Category: Medical Code(s): E66.01 - Morbid (severe) obesity due to excess calories (5) Pickwickian syndrome Status: Acute Category: Medical Code(s): E66.2 - Morbid (severe) obesity with alveolar hypoventilation (6) COPD (chronic obstructive pulmonary disease) Status: Acute Category: Medical Code(s): J44.9 - Chronic obstructive pulmonary disease, unspecified - Assessment and plan all Dx Assessment and Plan for all problems:: #Acute on chronic hypoxic and hypercarbic respiratory failure: #Healthcare associated pneumonia: #Pleural effusion: 60-year-old smoker COPD noncompliant with her medications recently discharged from the hospital after which she was treated with ceftriaxone dexamethasone for COPD exacerbation presented with worsening hypoxic and hypercarbic respiratory failure. Patient has been noncompliant with her treatments Chest x-ray showed prominent right lungpulmonary infiltrate along with right- sided pleural effusion. No evidence of leukocytosis. ABG showed hypoxic hypercarbic respiratory failure with respiratory acidosis with a pH of 7.25 and a PCO2 of 125.5 on admission. Patient also have diastolic heart failure with a EF of 55%. Nasal MRSA screen negative Interval update: Patient respiratory status improved, this morning on 4 L nasal cannula saturating 90 to 93%. No wheezing heard. Bibasilar crackles heard. Plan: - Dicontinue Vancomycin -Consider discontinuing gentamicin - Continue cefepime x 7 days and azithromycinx 5 days - DuoNebs every 6 hours scheduled along with budesonide every 12 schedule -Continue Trilogy nightly untill sleep study analysis which wll be scheduled upon 2-4 weeks post discharge. Settings -target tidal volume 8 mL/kg ideal body weight, PS minimum of 8 and PS max of 20. EPAP maximum of 8 and EPAP minimum of 6. We will continue the trilogy treatment and will schedule an appointment for sleep clinic to evaluate for possible sleep apnea -Volume optimization diuresis as per primary team and cardiology. #Thank you for involving pulmonary in this patient care. We will continue to follow.
--- NOTE | 2020-09-13 09:33 | HMH.ACPN2 ---
Internal Medicine - PN: Subj *Date: 09/13/20 *Time: 08:00 Interval history: pt sitting up in chair, asking for home health and equipment to assist her at home. refusing rehab placement at this time Exam Vital signs and Labs for Last 24 Hours: Temp Pulse Resp BP Pulse Ox 99.2 F 94 H 20 108/63 L 90 L 09/13/20 08:00 09/13/20 08:00 09/13/20 08:00 09/13/20 08:00 09/13/20 08:00 Laboratory Results - last 24 hr 09/13/20 06:33: WBC 6.1, RBC 3.91 L, Hgb 12.0 L, Hct 39.8, MCV 101.8 H, MCH 30.6, MCHC 30.0 L, RDW 15.5, Plt Count 204, MPV 7.8, Neut % (Auto) 68.0, Lymph % (Auto) 22.3, [place] % (Auto) 6.0, Eos % (Auto) 3.2, Baso % (Auto) 0.5, Neut # (Auto) 4.1, Lymph # (Auto) 1.4, [place] # (Auto) 0.4, Eos # (Auto) 0.2, Baso # (Auto) 0.0 I & O for Last 24 hours: Intake & Output 09/10/20 09/11/20 09/12/20 09/13/20 11:59 11:59 11:59 11:59 Intake Total 120 / 120 600 / 600 1370 / 1370 Output Total 2400 / 2400 4750 / 4750 3200 / 3200 Balance -2280 / -2280 -4150 / -4150 -1830 / -1830 Weight 286 lb 292 lb 6 oz Microbiology Reports for the Last 24 Hours: Microbiology 09/11/20 16:40 Nose - Nasal MRSA Culture - Final Negative 09/10/20 12:50 Blood Blood Culture - Preliminary NO GROWTH AFTER 48 HOURS 09/10/20 12:50 Blood Blood Culture - Preliminary NO GROWTH AFTER 48 HOURS 09/11/20 10:00 Sputum - Expectorated Sputum Gram Stain - Final 09/11/20 10:00 Sputum - Expectorated Sputum Sputum Culture - Preliminary - Constitutional no acute distress, morbidly obese - *Routine HEENT Exam Head: Present: normocephalic Eye: Present: PERRL ENT: Present: mucous membranes moist - *Routine Neck Exam Present: supple. Absent: lymphadenopathy - *Routine Respiratory Exam Present: wheezes - *Routine Cardiovascular Exam Present: RRR - *Routine Abdominal Exam Present: soft, normoactive bowel sounds. Absent: tenderness - *Routine Extremities Exam Present: normal capillary refill. Absent: cyanosis, clubbing, edema - *Routine Skin Exam Present: warm. Absent: rash - *Routine Neurological Exam Present: alert, oriented X3 - Routine Psychiatric Exam Present: normal affect Assessment and Plan (1) HCAP (healthcare-associated pneumonia) Status: Acute Category: Medical Code(s): J18.9 - Pneumonia, unspecified organism (2) Respiratory failure with hypercapnia Status: Acute Qualifiers: Chronicity: acute on chronic Qualified Code(s): J96.22 - Acute and chronic respiratory failure with hypercapnia Category: Medical Code(s): J96.92 - Respiratory failure, unspecified with hypercapnia (3) Chronic renal insufficiency Status: Acute Qualifiers: Chronic kidney disease stage: unspecified stage Qualified Code(s): N18.9 - Chronic kidney disease, unspecified Category: Medical Code(s): N18.9 - Chronic kidney disease, unspecified (4) Obesities, morbid Status: Acute Category: Medical Code(s): E66.01 - Morbid (severe) obesity due to excess calories (5) Pickwickian syndrome Status: Acute Category: Medical Code(s): E66.2 - Morbid (severe) obesity with alveolar hypoventilation (6) COPD (chronic obstructive pulmonary disease) Status: Acute Category: Medical Code(s): J44.9 - Chronic obstructive pulmonary disease, unspecified - Assessment and plan all Dx Assessment and Plan for all problems:: rounded with dr martin all order per dr martin pt/ot consult poss wa home tomorrow
--- NOTE | 2020-09-13 10:01 | HMH.PNCARD ---
Subjective Date: 09/13/20 Time: 10:00 Principal diagnosis: CHF Interval history: This is a 60-year-old white female who presented to the emergency department with worsening and increased shortness of breath as well as lower extremity edema. The patient has been being diuresed with IV Lasix. She had a -3 L fluid balance overnight last night. She also had a loop recorder placed for tachycardia. She has done well with diuresis. This morning she states she is feeling much better. Her shortness of breath and edema have both improved. She denies any chest pain or pressure. She denies any fever, chills, nausea, vomiting, diarrhea, PND or orthopnea. Exam Vital signs and Labs for Last 24 Hours: Temp Pulse Resp BP Pulse Ox 99.2 F 94 H 20 108/63 L 90 L 09/13/20 08:00 09/13/20 08:00 09/13/20 08:00 09/13/20 08:00 09/13/20 08:00 Laboratory Results - last 24 hr 09/13/20 06:33: WBC 6.1, RBC 3.91 L, Hgb 12.0 L, Hct 39.8, MCV 101.8 H, MCH 30.6, MCHC 30.0 L, RDW 15.5, Plt Count 204, MPV 7.8, Neut % (Auto) 68.0, Lymph % (Auto) 22.3, [place] % (Auto) 6.0, Eos % (Auto) 3.2, Baso % (Auto) 0.5, Neut # (Auto) 4.1, Lymph # (Auto) 1.4, [place] # (Auto) 0.4, Eos # (Auto) 0.2, Baso # (Auto) 0.0 I & O for Last 24 hours: Intake & Output 09/10/20 09/11/20 09/12/20 09/13/20 23:59 23:59 23:59 23:59 Intake Total 360 / 360 1440 / 1440 290 / 290 Output Total 1200 / 1200 3100 / 3100 4950 / 4950 1100 / 1100 Balance -1200 / -1200 -2740 / -2740 -3510 / -3510 -810 / -810 Weight 286 lb 286 lb 9.615 oz 292 lb 6 oz Microbiology Reports for the Last 24 Hours: Microbiology 09/11/20 16:40 Nose - Nasal MRSA Culture - Final Negative 09/10/20 12:50 Blood Blood Culture - Preliminary NO GROWTH AFTER 48 HOURS 09/10/20 12:50 Blood Blood Culture - Preliminary NO GROWTH AFTER 48 HOURS 09/11/20 10:00 Sputum - Expectorated Sputum Gram Stain - Final 09/11/20 10:00 Sputum - Expectorated Sputum Sputum Culture - Preliminary Narrative: Telemetry strip shows sinus rhythm - Constitutional no acute distress, morbidly obese - *Routine HEENT Exam Head: Present: normocephalic, atraumatic Eye: Present: EOMI, PERRL ENT: Present: mucous membranes moist - *Routine Neck Exam Present: supple, full ROM, normal carotid upstroke. Absent: JVD, carotid bruit, lymphadenopathy - *Routine Respiratory Exam Present: CTA bilaterally - *Routine Cardiovascular Exam Present: RRR, Normal S1, Normal S2 - *Routine Abdominal Exam Present: soft, normoactive bowel sounds. Absent: tenderness, distended - *Routine Extremities Exam Present: edema (Trace bilateral lower extremity edema), full ROM, pulses intact, normal capillary refill. Absent: cyanosis, clubbing - *Routine Skin Exam Present: intact, warm. Absent: erythema, rash - *Routine Neurological Exam Present: alert, oriented X3, CN II-XII intact. Absent: sensory deficit, motor deficit Progress Note: A&P (1) HCAP (healthcare-associated pneumonia) Status: Acute (2) Respiratory failure with hypercapnia Status: Acute (3) Chronic renal insufficiency Status: Acute (4) Obesities, morbid Status: Acute (5) Pickwickian syndrome Status: Acute (6) COPD (chronic obstructive pulmonary disease) Status: Acute Assessment and Plan for All Diagnoses:: plan: 1. The patient was admitted to the hospital with worsening shortness of breath and lower extremity edema. The patient has been getting IV diuresis with Lasix. She had a -3 L fluid balance over night. She has done well with IV diuresis. We will convert her Lasix over to oral Lasix today. Stop Lasix 40 mg IV and switch to Lasix 80 mg p.o. daily. 2. We will repeat a BMP in the morning to evaluate her renal function as she does have chronic kidney disease. Her last creatinine was 1.4 and stable. 3. The patient is status post loop recorder vinicius
--- NOTE | 2020-09-13 11:21 | HMH.PTEV ---
Physical Therapy Evaluation Rehab PT IP Evaluation Start: 09/13/20 09:04 Freq: ONCE Status: Active Protocol: Document 09/13/20 11:18 PIERRE (Rec: 09/13/20 11:21 PIERRE [id number]) Subjective/History History History this is the initial IP PT evaluation for Rose Lund . Pt is a 60 y/o female admitted to [facility] for weakness, CHF exacerbation. Pt lives in apartment by herself but does have neighbor check on her Subjective Subjective no complaints from pt Rehab PT IP Eval Objective Appearance Patient Behavior Appropriate,Cooperative Patient Orientation Person,Place,Time Difficulty following instructions none Speech Pattern Appropriate Ambulation Patient Able to Ambulate Yes Ambulation Observation IP General Gait Pattern Observation No Deviations/Normal Ambulation Distance (feet) 75 Ambulation Assistive Device Rolling Walker Ambulation Ability Contact Guard/Hand Hold Balance Ability to Arise Able, uses arms to help Sitting Balance Steady, safe Standing Balance Narrow stance w/o support Dynamic Sitting Balance Ability Normal Dynamic Standing Balance Ability Good Transfers Chair Transfer Ability Supervision/Stand by Sit to Stand Chair Transfer Ability Supervision/Stand by ROM All Extremities PT ROM Status WFL MMT All Extremities PT MMT WFL Rehab PT IP prob,goals,plan Problems Date of Evaluation: 09/13/20 PT IP Problems Gait,Self care Rehab Potential Rehab Potential Good Equipment Needs Assistive Devices Rolling / Wheeled Walker Plan PT Intervention Plan Transfers,Gait,Self care, Therapeutic Exercise PT Plan Frequency BID Duration LOS Discharge Goals Bed Transfer Ability Independent Sit to Stand Chair Transfer Ability Independent Ambulation Assistive Device Rolling Walker Ambulation Distance (feet) 100 Discharge Plan PT Discharge Plan pt safe to return home once medically stable - pt could benefit from and wishes to have HHPT to maintain and improve level of function to allow increased independence and decreased risk of fall and burden of care G -code Required No Eval Complexity Eval Charge Codes
--- NOTE | 2020-09-13 11:24 | HMH.OTEV ---
OT Inpatient Evaluation Rehab OT IP Evaluation Start: 09/13/20 09:04 Freq: ONCE Status: Complete Protocol: Document 09/13/20 11:18 [place] (Rec: 09/13/20 11:24 [facility] [id number]) Rehab OT IP Assessment Subjective History Pt oriented x 3 on arrival; pt agreeable to engage in therapy evaluation. Pt was admitted via ED on 09/10/20 due to SOB. Pt was recently admitted to [facility] and has returned with decreased oxygen saturations and difficulty breathing. Pt Has a past medical history of renal insufficiency, Anxiety, CHF, COPD, depression, GERD, HTN, and Lung disease. Pt reports she lives in apartment and her boyfriend lives above her. She claims she is independent with all ADL's, but is dependent upon her boyfriend for completion of all IADL's. Pt does use a walker during ambulation. Subjective I just went home and got worse. Objective Patient Orientation Person,Place,Birthday Upper Extremity Gross ROM WFL Transfer Training Sit/Stand Transfer Assist Level Contact Guard/Hand Hold Chair Transfer Ability Contact Guard/Hand Hold Chair Transfer Technique Sit to/from Ambulatory Chair Transfer Assistive Devices Rolling Walker Rehab OT IP prob,goals,plan Problems Date of Evaluation: 09/13/20 OT IP Problems Bed Mobility,Transfers,Gait, Balance,Self care,Safety Rehab Potential Rehab Potential Good Equipment Needs Assistive Devices Rolling / Wheeled Walker Plan OT intervention Plan Bed Mobility,Transfers,Gait, Balance,Self care,Safety, Therapeutic Exercise OT Plan Frequency Daily Duration LOS Discharge Goals Bed Mobility Ability Standby Assistance Sit to Stand Chair Transfer Ability Supervision/Stand by Chair Transfer Ability Supervision/Stand by Chair Transfer Technique Sit to/from Ambulatory Chair Transfer Assistive Devices Rolling Walker Self care skills fully toilet trained,uses utensils to feed self Feeding Ability
--- NOTE | 2020-09-13 13:04 | PC.NURSE ---
gentamicin late a this time. patient required new iv that made previous medication late. once that one is in will hang the gent.
--- NOTE | 2020-09-13 20:17 | PC.NURSE ---
Addendum entered by Olga Arredondo RN 09/13/20 20:20: did verify with lam conde to dc gentamicin and that patient could have a 21mg nicotine patch daily. Original Note: patient has had an okay day. has felt better this shift after resting well last night and having a bm. has been walking in room with assistance. has sat in chair all day. has excessively snacked today and the complained of some vomiting later in shift. abdominal wound noted. loop recorder dressing noted. rings out as needed. r forearm iv removed and l forearm iv placed. noted to start burning during medication so iv removed and 20 placed in l hand. no complaints with breathing. was able to be weaned down to 3l nasal cannula today with no difficulty. vitals have been stable.
--- NOTE | 2020-09-13 23:25 | PC.NURSE ---
RA SAT=81% AT REST, RETURNED PT TO 4L NC.
[2020-09-14] VITALS (7 sets, daily range): BP systolic 109–127; BP diastolic 54–82; PULSE 80–100; RESP 17–22; TEMP 36.9–37.1; O2SAT 91–93; BMI 51.2
--- NOTE | 2020-09-14 00:59 | PC.NURSE ---
at start of shift during report pt was noted to have blood on hands and gown. pt was examined and found an open area to chest where loop recorder dressing was. spoke with scooter at that time. hardeep givens instructed on dressing to place and that he would look at it in the AM. area was cleaned, steri strips, gauze, and tegaderm placed. noted to have bruising to area and unable to feel loop recorder. appears that loop recorder site is closed and it maybe caused by pt scratching the area.
--- NOTE | 2020-09-14 05:19 | PC.NURSE ---
pt alert and oriented. trilogy worn throughout night. pt o2 sat ranged from 86-91%. nsr on telemetry. no pain reported. currently on 3LNC and is sitting up in chair. dressing to abdomen changed. bath this morning. iv patent. espinoza in place and draining. vss. pt was asking for help when going home. call light in reach. will continue to monitor pt condition.
[2020-09-14 07:22] LABS: Basophils % 0.6 % (0.1-2.0); Eosinophils # 0.2 K/mm3 (0.0-0.4); Eosinophils % 3.6 % (0.1-12.0); Hematocrit 39.8 % (37.0-47.0); Hemoglobin 11.8 g/dL (12.2-16.2); Lymphocytes # 1.4 K/mm3 (0.7-4.5); Lymphocytes % 23.8 % (10-50); Mean Corpuscular HGB Conc 29.5 g/dL (31.8-35.4); Mean Corpuscular Hemoglobin 30.2 pg (27.0-31.2); Mean Corpuscular Volume 102.4 fl (81-99); Mean Platelet Volume 7.7 fl (7.4-10.4); Monocytes # 0.3 K/mm3 (0.1-1.0); Monocytes % 5.4 % (1.7-9.3); Neutrophils # 3.9 K/mm3 (1.8-7.8); Neutrophils % 66.7 % (37.0-80.0); Platelet Count 211 K/mm3 (142-424); Red Blood Count 3.89 M/mm3 (4.20-5.40); Red Cell Distribution Width 15.3 % (11.5-17.5); White Blood Count 5.9 K/mm3 (4.8-10.8)
[2020-09-14 07:34] LABS: Blood Urea Nitrogen 35 mg/dl (7-17); Calcium 9.2 mg/dl (8.4-10.2); Chloride 90 mmol/L (98-107); Creatinine Clearance Estimated 27 mL/min (50-200); Estimated Glomerular Filt Rate 29 ml/min (>60); GFR (African American) 35 ML/MIN (>60); Glucose 87 mg/dl (74-100); Potassium 5.3 mmoL/L (3.5-5.1); Sodium 139 mmol/L (136-145)
--- NOTE | 2020-09-14 08:34 | HMH.DCSUM ---
General - General Admission date:: 09/10/20 Discharge date: 09/14/20 HPI HPI: 60 yr old female presented to [facility] ed with sob - pt with recent [facility] admit - Past medical history significant COPD, PTSD, DDD, JOSIE, obesity presented emergency department secondary to shortness of breath. Patient was stating in the 60s when EMS arrived. They placed her on BiPAP in the ambulance. The patient saturations have improved into the upper 80s. She is now working hard to breathe now per EMS. She dorsals mild chest pain that began today. She denies any radiation of her chest pain. She had no exertion to see if that promotes her chest pain. She took nothing prior to arrival today. She denies any fever, cough, nausea or vomiting. pt with abn abg and required bpap and was admitted for further work up Hospital Course Hospital Course: Laboratory Tests 09/10/20 09/10/20 09/10/20 12:50 12:50 12:50 WBC 9.4 RBC 4.24 Hgb 12.8 Hct 42.8 MCV 101.0 H MCH 30.2 MCHC 29.9 L RDW 15.1 Plt Count 171 MPV 8.4 Neut % (Auto) 86.1 H Lymph % (Auto) 8.8 L [place] % (Auto) 4.5 Eos % (Auto) 0.4 Baso % (Auto) 0.2 Neut # (Auto) 8.1 H Lymph # (Auto) 0.8 [place] # (Auto) 0.4 Eos # (Auto) 0.0 Baso # (Auto) 0.0 Total Counted 100 Neutrophils % (Manual) 87 H Lymphocytes % (Manual) 9 L Monocytes % (Manual) 4 Platelet Estimate Normal Macrocytosis 1+ Specimen Source O2 % ABG pH ABG pCO2 ABG pO2 ABG HCO3 ABG Total CO2 ABG O2 Saturation ABG Base Excess Mati Test Vent Rate Tidal Volume PEEP Sodium 141 Potassium 5.3 H Chloride 93 L Carbon Dioxide 47 H* Anion Gap 6.3 BUN 63 H Creatinine 1.70 H Estimated Creat Clear 29 Estimated GFR 31 L Est GFR ( Amer) 37 L Glucose 117 H Lactate 0.8 Calcium 9.0 Total Bilirubin 0.5 AST 40 H ALT 91 H Alkaline Phosphatase 68 Troponin I 0.02 NT-Pro-B Natriuret Pep Total Protein 6.4 Albumin 3.7 Globulin 2.7 Albumin/Globulin Ratio 1.4 Random Gentamicin 09/10/20 09/10/20 09/10/20 12:50 13:01 16:15 WBC RBC Hgb Hct MCV MCH MCHC RDW Plt Count MPV Neut % (Auto) Lymph % (Auto) [place] % (Auto) Eos % (Auto) Baso % (Auto) Neut # (Auto) Lymph # (Auto) [place] # (Auto) Eos # (Auto) Baso # (Auto) Total Counted Neutrophils % (Manual) Lymphocytes % (Manual) Monocytes % (Manual) Platelet Estimate Macrocytosis Specimen Source Right radial O2 % 50 ABG pH 7.22 L* ABG pCO2 104.1 H ABG pO2 72.7 L ABG HCO3 41.7 H ABG Total CO2 44.9 H ABG O2 Saturation 94 ABG Base Excess 14.0 H Mati Test Acceptable Vent Rate Tidal Volume PEEP 8 Sodium Potassium Chloride Carbon Dioxide Anion Gap BUN Creatinine Estimated Creat Clear Estimated GFR Est GFR ( Amer) Glucose Lactate Calcium Total Bilirubin AST ALT Alkaline Phosphatase Troponin I 0.02 NT-Pro-B Natriuret Pep 22804 H Total Protein Albumin Globulin Albumin/Globulin Ratio Random Gentamicin 09/10/20 09/10/20 09/10/20 18:00 19:11 19:53 WBC RBC Hgb Hct MCV MCH MCHC RDW Plt Count MPV Neut % (Auto) Lymph % (Auto) [place] % (Auto) Eos % (Auto) Baso % (Auto) Neut # (Auto) Lymph # (Auto) [place] # (Auto) Eos # (Auto) Baso # (Auto) Total Counted Neutrophils % (Manual) Lymphocytes % (Manual) Monocytes % (Manual) Platelet Estimate Macrocytosis Specimen Source Right radial R radial O2 % 50 60 ABG pH 7.25 L 7.31 L ABG pCO2 125.5 H 99.8 H ABG pO2 82.4 62.9 L ABG HCO3 54.3 H 49.2 H ABG Total CO2 58.2 H 52.3 H ABG O2 Saturation 96 93 ABG Base Excess 27.1 H 23.0 H
[2020-09-14 08:46] LABS: Anion Gap 12.3 mEq/L (5-15); Carbon Dioxide 42 mmol/L (22.0-30.0)
--- NOTE | 2020-09-14 08:48 | PC.NURSE ---
PATIENT WILL REQUIRE A ROLLING WALKER RATHER THAN A CANE DUE TO UNSTEADY GAIT AND MOBILITY ISSUES.
--- NOTE | 2020-09-14 09:58 | HMH.PULMPN ---
Internal Medicine - PN: Subj *Date: 09/14/20 *Time: 09:58 Interval history: No acute respiratory events overnight Exam - Constitutional Constitutional:: Present: no acute distress, comfortable - HENMT Exam HENMT: Present: atraumatic - Eye Exam Eyes:: Present: eyelids normal - Neck Exam Neck:: Present: thyroid normal, no lymphadenopathy - Respiratory Exam Respiratory:: Present: able to speak in complete sentences, normal breath sounds, no respiratory distress, crackles - Cardiovascular Exam Cardiac:: Present: S1, S2 - GI Exam GI:: Present: soft, obese - Skin Exam Skin: Present: warm, no rash - Neurological Exam Neurological: Present: alert, awake, normal cognition - Extremities Exam Extremities: Present: no cyanosis, no clubbing, edema - Psychiatric Exam Psychiatric: Present: normal affect Assessment and Plan (1) HCAP (healthcare-associated pneumonia) Status: Acute Category: Medical Code(s): J18.9 - Pneumonia, unspecified organism (2) Respiratory failure with hypercapnia Status: Acute Qualifiers: Chronicity: acute on chronic Qualified Code(s): J96.22 - Acute and chronic respiratory failure with hypercapnia Category: Medical Code(s): J96.92 - Respiratory failure, unspecified with hypercapnia (3) Chronic renal insufficiency Status: Acute Qualifiers: Chronic kidney disease stage: unspecified stage Qualified Code(s): N18.9 - Chronic kidney disease, unspecified Category: Medical Code(s): N18.9 - Chronic kidney disease, unspecified (4) Obesities, morbid Status: Acute Category: Medical Code(s): E66.01 - Morbid (severe) obesity due to excess calories (5) Pickwickian syndrome Status: Acute Category: Medical Code(s): E66.2 - Morbid (severe) obesity with alveolar hypoventilation (6) COPD (chronic obstructive pulmonary disease) Status: Acute Category: Medical Code(s): J44.9 - Chronic obstructive pulmonary disease, unspecified - Assessment and plan all Dx Assessment and Plan for all problems:: #Acute on chronic hypoxic and hypercarbic respiratory failure: #Healthcare associated pneumonia: #Pleural effusion: 60-year-old smoker COPD noncompliant with her medications recently discharged from the hospital after which she was treated with ceftriaxone dexamethasone for COPD exacerbation presented with worsening hypoxic and hypercarbic respiratory failure. Patient has been noncompliant with her treatments Chest x-ray showed prominent right lungpulmonary infiltrate along with right-sided pleural effusion. No evidence of leukocytosis. ABG showed hypoxic hypercarbic respiratory failure with respiratory acidosis with a pH of 7.25 and a PCO2 of 125.5 on admission. Patient also have diastolic heart failure with a EF of 55%. Nasal MRSA screen negative Patient respiratory continued to improve with antibiotics, inhalers and diuretics. Patient this morning appeared comfortable not in any respiratory select lungs clear to except for mild bibasilar crackles with no audible wheeze. Volume status continued to improve. Plan: - Continue cefepime x 7 days and azithromycinx 5 days - DuoNebs every 6 hours scheduled along with budesonide every 12 schedule, patient can be discharged on triple inhaler therapy like Trelegy and DuoNeb's every 6 hours along with a nebulizer machine -Patient admits significant improvement in her sleep quality after initiation of Trilogy - Continue Trilogy and schedule an appointment with sleep clinic for further evaluation & downloading information from trilogy to optimize her settings. Current Settings -target tidal volume 8 mL/kg ideal body weight, PS minimum of 8 and PS max of 20. EPAP maximum of 8 and EPAP minimum of 6. We will continue the trilogy treatment and will schedule an appointment for sleep clinic to evaluate for possible sleep apnea -Volume optimization diuresis as per primary team and cardiology. #Thank you for involving pulmonary in
--- NOTE | 2020-09-14 11:34 | P.PN_ITS ---
Internal Medicine - PN: Subj *Date: 09/14/20 *Time: 11:34 Exam Vital signs and Labs for Last 24 Hours: Temp Pulse Resp BP Pulse Ox 98.6 F 90 17 127/74 91 L 09/14/20 07:37 09/14/20 08:00 09/14/20 07:37 09/14/20 07:37 09/14/20 07:37 Laboratory Results - last 24 hr 09/14/20 06:47: Sodium 139, Potassium 5.3 H, Chloride 90 L, Carbon Dioxide 42 H* D, Anion Gap 12.3, BUN 35 H D, Creatinine 1.80 H D, Estimated Creat Clear 27, Estimated GFR 29 L, Est GFR ( Amer) 35 L D, Glucose 87, Calcium 9.2 09/14/20 06:47: WBC 5.9, RBC 3.89 L, Hgb 11.8 L, Hct 39.8, MCV 102.4 H, MCH 30.2, MCHC 29.5 L, RDW 15.3, Plt Count 211, MPV 7.7, Neut % (Auto) 66.7, Lymph % (Auto) 23.8, [place] % (Auto) 5.4, Eos % (Auto) 3.6, Baso % (Auto) 0.6, Neut # (Auto) 3.9, Lymph # (Auto) 1.4, [place] # (Auto) 0.3, Eos # (Auto) 0.2, Baso # (Auto) 0.0 I & O for Last 24 hours: Intake & Output 09/11/20 09/12/20 09/13/20 09/14/20 23:59 23:59 23:59 23:59 Intake Total 360 / 360 1440 / 1440 1010 / 1060 290 / 290 Output Total 3100 / 3100 4950 / 4950 3100 / 3100 Balance -2740 / -2740 -3510 / -3510 -2089 / -2039 290 / 290 Weight 130 kg 132.619 kg 131.088 kg Microbiology Reports for the Last 24 Hours: Microbiology 09/11/20 10:00 Sputum - Expectorated Sputum Gram Stain - Final 09/11/20 10:00 Sputum - Expectorated Sputum Sputum Culture - Preliminary Assessment and Plan (1) HCAP (healthcare-associated pneumonia) Status: Acute Category: Medical Code(s): J18.9 - Pneumonia, unspecified organism (2) Respiratory failure with hypercapnia Status: Acute Qualifiers: Chronicity: acute on chronic Qualified Code(s): J96.22 - Acute and chronic respiratory failure with hypercapnia Category: Medical Code(s): J96.92 - Respiratory failure, unspecified with hypercapnia (3) Chronic renal insufficiency Status: Acute Qualifiers: Chronic kidney disease stage: unspecified stage Qualified Code(s): N18.9 - Chronic kidney disease, unspecified Category: Medical Code(s): N18.9 - Chronic kidney disease, unspecified (4) Obesities, morbid Status: Acute Category: Medical Code(s): E66.01 - Morbid (severe) obesity due to excess calories (5) Pickwickian syndrome Status: Acute Category: Medical Code(s): E66.2 - Morbid (severe) obesity w ith alveolar hypoventilation (6) COPD (chronic obstructive pulmonary disease) Status: Acute Category: Medical Code(s): J44.9 - Chronic obstructive pulmonary disease, unspecified The patient's infection will respond to the chosen ABx?: Yes Is the patient receiving the right drug, dose, and route?: Yes Could a more targeted ABx be ordered?: No
== END 2020-09-14 14:03 | disposition home health service (06) | DRG 981 ==
LOC: ER 15:36 → 2ND 18:35
PROVIDERS: Internal Medicine; Nurse Practitioner Family; Urology; Admitting Provider Emergency Medicine; Emergency Provider Family Medicine; PCP Emergency Medicine; Visit Provider Emergency Medicine
PROC: 0JH602Z Insertion of Monitoring Device into Chest Subcutaneous Tissue and Fascia, Open Approach (ICD-10-PCS; principal; 2020-09-11 11:00)
DX: I50.31 Acute diastolic (congestive) heart failure; E66.2 Morbid (severe) obesity with alveolar hypoventilation; Z68.43 Body mass index [BMI] 50.0-59.9, adult; J18.9 Pneumonia, unspecified organism; J96.22 Acute and chronic respiratory failure with hypercapnia; Z91.018 Allergy to other foods; Z79.51 Long term (current) use of inhaled steroids; Z79.899 Other long term (current) drug therapy; I11.0 Hypertensive heart disease with heart failure; J44.9 Chronic obstructive pulmonary disease, unspecified; Z72.0 Tobacco use; Z88.8 Allergy status to other drugs, medicaments and biological substances; N18.9 Chronic kidney disease, unspecified; R00.2 Palpitations
CPT/HCPCS: 33285; 36415; 71045; 80048; 80053; 80170; 82803; 83605; 83880; 84484; 85007; 85025; 87040; 87070; 87081; 87205; 93005; 94640; 94761; 96374; 97116; 97161; 97166; 97530; 99285; J0456; J0692; J2405; J3370; U0003

== ENCOUNTER → 2020-09-24 15:11 | Outpatient (CLI) | payer OTHER, SELFPAY ==
[2020-09-24 15:59] LABS: Basophils % 0.3 % (0.1-2.0); Eosinophils # 0.2 K/mm3 (0.0-0.4); Eosinophils % 2.8 % (0.1-12.0); Hematocrit 41.1 % (37.0-47.0); Hemoglobin 12.5 g/dL (12.2-16.2); Lymphocytes # 1.2 K/mm3 (0.7-4.5); Lymphocytes % 20.4 % (10-50); Mean Corpuscular HGB Conc 30.4 g/dL (31.8-35.4); Mean Corpuscular Hemoglobin 30.4 pg (27.0-31.2); Mean Platelet Volume 7.6 fl (7.4-10.4); Monocytes # 0.2 K/mm3 (0.1-1.0); Monocytes % 3.1 % (1.7-9.3); Neutrophils # 4.5 K/mm3 (1.8-7.8); Neutrophils % 73.3 % (37.0-80.0); Platelet Count 206 K/mm3 (142-424); Red Blood Count 4.11 M/mm3 (4.20-5.40); Red Cell Distribution Width 15.9 % (11.5-17.5); White Blood Count 6.1 K/mm3 (4.8-10.8)
[2020-09-24 16:17] LABS: Alanine Aminotransferase 15 U/L (12-78); Albumin Level 3.8 g/dl (3.5-5.0); Albumin/Globulin Ratio 1.5 (1.1-1.8); Alkaline Phosphatase 68 U/L (38-126); Aspartate Amino Transferase 19 U/L (14-36); Bilirubin,Total 0.4 mg/dl (0.2-1.3); Blood Urea Nitrogen 19 mg/dl (7-17); Calcium 9.3 mg/dl (8.4-10.2); Chloride 93 mmol/L (98-107); Estimated Glomerular Filt Rate 38 ml/min (>60); GFR (African American) 47 ML/MIN (>60); Globulin 2.5 g/dL (1.3-3.2); Glucose 88 mg/dl (74-100); Potassium 4.2 mmoL/L (3.5-5.1); Sodium 144 mmol/L (136-145); Total Protein,Serum 6.3 g/dl (6.3-8.2); Uric Acid 8.9 mg/dl (2.5-6.2)
[2020-09-24 16:19] LABS: Blood Urea Nitrogen 19 mg/dl (7-17); Calcium 9.2 mg/dl (8.4-10.2); Chloride 92 mmol/L (98-107); Estimated Glomerular Filt Rate 36 ml/min (>60); GFR (African American) 43 ML/MIN (>60); Glucose 87 mg/dl (74-100); Potassium 3.8 mmoL/L (3.5-5.1); Sodium 144 mmol/L (136-145)
[2020-09-24 16:25] LABS: C-Reactive Protein 31.3 mg/L (0-4)
[2020-09-24 16:33] LABS: Anion Gap 10.2 mEq/L (5-15)
[2020-09-24 16:34] LABS: Carbon Dioxide 45 mmol/L (22.0-30.0)
[2020-09-24 16:49] LABS: Thyroid Stimulating Hormone 1.64 uIU/mL (0.465-4.68)
[2020-09-24 16:50] LABS: Anion Gap 10.8 mEq/L (5-15); Carbon Dioxide 45 mmol/L (22.0-30.0); Erythrocyte Sedimentation Rate 15 mm/hr (0-30)
[2020-09-24 17:24] LABS: Vitamin B12 196 pg/mL (239-931)
[2020-09-24 17:36] LABS: Hemoglobin A1C 5.2 % (4.0-6.0)
== END ==
PROVIDERS: Podiatrist; Visit Provider Urology
DX: R06.00 Dyspnea, unspecified (principal); R07.9 Chest pain, unspecified; R42 Dizziness and giddiness; I50.9 Heart failure, unspecified; I11.0 Hypertensive heart disease with heart failure; Z95.818 Presence of other cardiac implants and grafts; M10.9 Gout, unspecified; M79.673 Pain in unspecified foot; R73.9 Hyperglycemia, unspecified
CPT/HCPCS: 36415; 80048; 80053; 82607; 82746; 83036; 84443; 84550; 85025; 85651; 86140

== ENCOUNTER → 2020-11-12 13:15 | Outpatient (CLI) | payer OTHER, SELFPAY ==
[2020-11-12 14:44] LABS: Vancomycin,Trough 24.3 ug/mL (5.0-10.0)
[2020-11-12 21:45] LABS: Vancomycin,Peak 47.6 ug/ml (11-39)
== END ==
PROVIDERS: PCP Emergency Medicine; Visit Provider Emergency Medicine
DX: Z51.81 Encounter for therapeutic drug level monitoring (principal)
CPT/HCPCS: 80202